=== PATIENT | female | born 1965 | race Caucasian/White ===

== ENCOUNTER 2018-04-02 13:18 | Inpatient (IN) ==
[2018-04-02] MEDS ORDERED: SODIUM CHLORIDE 0.9% 1000ML 1,000 ML IV SCH (13:45)
--- NOTE | 2018-04-02 13:50 | Emergency Department Note ---
Entered by Breanna Harrell acting as a scribe for History of Present Illness General Chief complaint: Foot Injury/Pain Stated complaint: LEFT FOOT PAIN Time Seen by Provider: 04/02/18 13:31 Source: patient History of Present Illness Provider complaint: left foot pain Onset (ago): day(s) Location: foot (left) Pain Consistency: + constant Maximum Pain Intensity: 7 Quality: + other (foot pain) Associated symptoms: + other (fever, chest heaviness, cough) The patient is a 52 year old female who presents to the Emergency Room with complaints of constant left foot pain beginning recently. She reports Dr. Rodriguez referred her to the ED after he saw her in the office today for osteomyelitis. The patient notes she had surgery on her achilles tendon 12/24/17, and her wound has not yet healed. She reports she was placed on 3 different antibiotics ( Bactrim, Keflex, Augmentin) and has not had any antibiotics for 1 week. The patient notes she has had a fever, heaviness in her chest, and a cough. Allergies Allergy/AdvReac Type Severity Reaction Status Date / Time Latex, Natural Rubber Allergy Unknown Unverified 04/02/18 16:31 triamcinolone [From Kenalog] Allergy Unknown Unverified 04/02/18 16:31 Past Med/Surg History Medical History Depression Gout High cholesterol Migraine Surgical History H/O foot surgery Social History Feels Safe at Home: Yes Review of Systems See HPI for pertinent positives & negatives. and A total of 10 systems reviewed and were otherwise negative Physical Exam Vital Signs Vital Signs - 24 hr 04/02/18 13:23 Temperature 36.5 C Temperature Source Oral Sepsis Recent Fever Within 48 Hours No Sepsis New/Unexplained Change in Mental Status No Sepsis Action Taken by Nursing No Action Required Pulse Rate 92 H Respiratory Rate 20 Respiratory Effort / Characteristics Non-Labored Respiratory Depth Normal Blood Pressure 156/93 H Blood Pressure Mean 114 Pulse Oximetry 98 Oxygen Delivery Method Room Air GENERAL: Patient is awake alert in no acute distress patient is resting comfortably and showing no signs of anxiety EYES: The conjunctivae are clear. The pupils are round and reactive. EARS, NOSE, MOUTH AND THROAT: The nose is without any evidence of any deformity. Mucous membranes are moist tongue is midline NECK: The neck is nontender and supple. RESPIRATORY: Normal respiratory effort is noted there is no evidence of wheezing rhonchi or rales CARDIOVASCULAR: Regular rate and rhythm noted there no murmurs rubs or gallops normal S1 normal S2 GASTROINTESTINAL: The abdomen is soft. Bowel sounds are present in all quadrants. Abdomen is nontender PELVIS: The Pelvis is stable. No tenderness to palpation is noted. BACK: No midline tenderness or or step-off noted range of motion in flexion extension as well as rotation no signs of muscle spasm noted MUSCULOSKELETAL/EXTREMITIES: There is ankle edema noted in the left lower extremity. There is pedal edema on the left foot. There is a wound dressing in place with tenderness over the left Achilles insertion at the heel. SKIN: Capillary refill was symmetric in both feet. NEUROLOGIC: Patient is awake alert and oriented x3. Course 1337: Past medical records reviewed. The patient was evaluated in room C7, and a complete history and physical examination were performed. 1552: I discussed the case with . 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 1555: I discussed the case with Dr Rodriguez. He is agreed to follow the patient in consultation and would prefer to place a wound VAC by himself when he evaluate the patient in consultation. 1610: [place] Hospitalist notified 1633: I discussed this case with Dr. Beltre, the on-call [facility] hospitalist. They have agreed to evaluate the patient. Administered Medications Gadobutrol (Gadavist 65ml) 8 ml IV ONCE PRN PRN Reason: Interaction Checking Stop: 04/06/18 15:12 Last Admin: 04/02/18 15:13 Dose: 8 ml Vancomycin HCl 1,750 mg/ (Sodium Chloride) 535 mls @ 200 mls/hr IV NOW ONE Stop: 04/02/18 18:18 Last Admin: 04/02/18 16:12 Dose: 200 mls/hr Discontinued Medications Sodium Chloride (Nss 1000ml) 1,000 mls @ 999 mls/hr IV .[id number] YEVGENIY Stop: 04/02/18 14:45 Last Infusion: 04/02/18 14:54 Dose: 0 mls/hr Admin: 04/02/18 13:53 Dose: 999 mls/hr Piperacillin Sod/Tazobactam Sod (Zosyn) 4.5 gm in 120 mls @ 240 mls/hr IV NOW ONE Stop: 04/02/18 16:07 Last Admin: 04/02/18 16:12 Dose: 240 mls/hr Oxycodone HCl (Roxicodone Immediate Rel) 5 mg PO NOW STA Stop: 04/02/18 14:23 Last Admin: 04/02/18 14:31 Dose: 5 mg Medical Decision Making Differential Diagnosis Etiologies such as post-operative infection, cellulitis, abscess, osteomyelitis , MRSA infection, DVT, necrotizing fasciitis, dermatitis, drug eruption, as well as others were entertained. Medical Records Attestation: I reviewed the patient's medical records. Home Medications Current Medication List: was personally reviewed by me Laboratory Data Attestation: I reviewed the patient's lab results. Result diagrams: 04/02/18 13:55 04/02/18 13:55 Lab Results 04/02/18 04/02/18 04/02/18 Range/Units 13:55 13:55 13:55 WBC 8.06 (4.8-10.8) K/uL RBC 4.52 (4.2-5.4) M/uL Hgb 14.0 (12.0-16.0) g/dL POC Hgb (12.0-16.0) g/dl Hct 42.3 (37-47) % POC Hct (37-47) % MCV 93.6 (80-100) fL MCH 31.0 (25-34) pg MCHC 33.1 (32-36) g/dL RDW Std Deviation 52.5 H (36.4-46.3) fL RDW Coeff of Paul 15.4 H (11.5-14.5) % Plt Count 176 (130-400) K/uL MPV 10.4 (7.4-10.4) fL Immature Gran % (Auto) 0.4 % Neut % (Auto) 63.9 % Lymph % (Auto) 25.9 % [place] % (Auto) 5.3 % Eos % (Auto) 3.5 % Baso % (Auto) 1.0 % Immature Gran # (Auto) 0.03 H (0.00-0.02) K/uL Neut # (Auto) 5.15 (1.4-6.5) K/uL Lymph # (Auto) 2.09 (1.2-3.4) K/uL [place] # (Auto) 0.43 (0.11-0.59) K/uL Eos # (Auto) 0.28 (0-0.5) K/uL Baso # (Auto) 0.08 (0-0.2) K/uL ESR 58 H (0-21) mm/hr POC Sodium (135-144) mEq/L Sodium 137 (136-145) mmol/L POC Potassium (3.3-5.0) mEq/L Potassium 3.6 (3.5-5.1) mmol/L POC Chloride (101-112) mEq/L Chloride 106 (98-107) mmol/L Carbon Dioxide 26 (21-32) mmol/L POC Total CO2 (24-31) mEq/l Anion Gap 5.0 (3-11) POC Anion Gap (16-25) mmol/L POC BUN (7-18) mg/dl BUN 8 (7-18) mg/dl Creatinine 0.80 (0.6-1.2) mg/dl POC Creatinine (0.6-1.3) mg/dl Est Cr Clr Drug Dosing 86.6 ml/min Est GFR ( Amer) 96.9 Est GFR (Non-Af Amer) 83.6 BUN/Creatinine Ratio 9.9 L (10-20) Glucose 119 H (70-99) mg/dl POC Glucose (other) (70-99) mg/dl Calcium 8.9 (8.5-10.1) mg/dl POC Ioniz Calcium Olivia (1.12-1.32) mmol/l Total Bilirubin 0.8 (0.2-1) mg/dl AST 91 H (15-37) U/L ALT 56 (12-78) U/L Alkaline Phosphatase 184 H (45-117) U/L C-Reactive Protein 1.05 H (0-0.29) mg/dl Total Protein 7.9 (6.4-8.2) gm/dl Albumin 3.4 (3.4-5.0) gm/dl Globulin 4.5 H (2.5-4.0) gm/dl Albumin/Globulin Ratio 0.8 L (0.9-2) 04/02/18 Range/Units 14:00 WBC (4.8-10.8) K/uL RBC (4.2-5.4) M/uL Hgb (12.0-16.0) g/dL POC Hgb 14.6 (12.0-16.0) g/dl Hct (37-47) % POC Hct 43 (37-47) % MCV (80-100) fL MCH (25-34) pg MCHC (32-36) g/dL RDW Std Deviation (36.4-46.3) fL RDW Coeff of Paul (11.5-14.5) % Plt Count (130-400) K/uL MPV (7.4-10.4) fL Immature Gran % (Auto) % Neut % (Auto) % Lymph % (Auto) % [place] % (Auto) % Eos % (Auto) % Baso % (Auto) % Immature Gran # (Auto) (0.00-0.02) K/uL Neut # (Auto) (1.4-6.5) K/uL Lymph # (Auto) (1.2-3.4) K/uL [place] # (Auto) (0.11-0.59) K/uL Eos # (Auto) (0-0.5) K/uL Baso # (Auto) (0-0.2) K/uL ESR (0-21) mm/hr POC Sodium 141 (135-144) mEq/L Sodium (136-145) mmol/L POC Potassium 3.7 (3.3-5.0) mEq/L Potassium (3.5-5.1) mmol/L POC Chloride 104 (101-112) mEq/L Chloride (98-107) mmol/L Carbon Dioxide (21-32) mmol/L POC Total CO2 26 (24-31) mEq/l Anion Gap (3-11) POC Anion Gap 15.0 L (16-25) mmol/L POC BUN 6 L (7-18) mg/dl BUN (7-18) mg/dl Creatinine (0.6-1.2) mg/dl POC Creatinine 0.6 (0.6-1.3) mg/dl Est Cr Clr Drug Dosing ml/min Est GFR ( Amer) Est GFR (Non-Af Amer) BUN/Creatinine Ratio (10-20) Glucose (70-99) mg/dl POC Glucose (other) 122 H (70-99) mg/dl Calcium (8.5-10.1) mg/dl POC Ioniz Calcium Olivia 1.13 (1.12-1.32) mmol/l Total Bilirubin (0.2-1) mg/dl AST (15-37) U/L ALT (12-78) U/L Alkaline Phosphatase (45-117) U/L C-Reactive Protein (0-0.29) mg/dl Total Protein (6.4-8.2) gm/dl Albumin (3.4-5.0) gm/dl Globulin (2.5-4.0) gm/dl Albumin/Globulin Ratio (0.9-2) Imaging Data Radiologist's Impression: Radiology results as stated below per my review and the radiologist's interpretation: XR chest 1V portable CLINICAL HISTORY: cough COMPARISON STUDY: No previous studies for comparison. FINDINGS: The heart is borderline enlarged. There is no failure. There is no focal pulmonary consolidation. There are no pleural effusions.[ IMPRESSION: No active disease in the chest. Electronically signed by: Weston Hernandez M.D. 04/02/2018 2:13 PM MRI OF THE LEFT ANKLE COMBO CLINICAL HISTORY: Open wound left ankle status post surgery calcaneus and Achilles. COMPARISON STUDY: No priors. TECHNIQUE: MRI of the left ankle is performed utilizing various T1 and T2- weighted sequences in the axial, sagittal, and coronal planes. Contrast- enhanced sequences are acquired following the IV administration of 8 cc of Gadavist. Note that interpretation is significantly suboptimal without plain film correlate. FINDINGS: There is tendinopathy with extensive thickening and tearing involving the distal Achilles tendon with evidence of surgical repair. There is a large gap between the Central fibers of the Achilles tendon and the calcaneus, best seen on sagittal image #11. Several of the medial and lateral fibers remain intact. There is no tendinous retraction identified. There are at least 5 surgical anchors present within the posterior aspect of the calcaneus. There is drop in T1 signal within the posterior calcaneus around the surgical anchors, as well as destruction of the overlying cortex. This is highly concerning for osteomyelitis, and there is nonspecific patchy abnormal enhancement in this region. There is a cutaneous defect posterior the calcaneus, likely representing a wound. Debris filling this cavity likely resents packing material. There is nonspecific soft tissue thickening and enhancement around this site which may resent granulation tissue an/or cellulitis. No gas fluid collection is seen typical for abscess. Mild diffuse edema is seen throughout the hindfoot and ankle. No additional foci of marrow signal abnormality are seen throughout the remainder of the foot. The talar dome is intact. There is no ankle joint effusion. The anterior, posterior, and peroneal tendons appear intact. The anterior talofibular and tibiofibular ligaments appear preserved. IMPRESSION: 1. There is extensive tearing of the distal Achilles tendon with evidence of operative repair. 2. There is a large gap within the substance of the Achilles tendon at the calcaneal junction. This may resent postoperative change or re-tearing of the distal tendon. Several of the medial and lateral fibers remain intact. 3. There is abnormal signal within the posterior calcaneus around surgical anchors with loss of the overlying cortex. This is highly concerning for osteomyelitis. 4. A cutaneous defect posterior to the calcaneus likely represents a wound, possibly with packing material. Clinical correlation will be required. 5. Soft tissue thickening and nonspecific enhancement posterior to the calcaneus could represent granulation tissue and/or cellulitis. Again, clinical correlation will be required. 6. No organized fluid collection is seen to indicate abscess. Electronically signed by: Shady Martinez M.D. 04/02/2018 3:37 PM Blood Pressure Blood Pressure Findings: Elevated blood pressure MDM Narrative The patient is a 52-year-old female who is status post Achilles tendon repair. She had Achilles tendon repair in December of last year. And follow-up the patient developed an abscess which was treated at a wound care center. She had outpatient antibiotics at that time. She is not currently taking outpatient antibiotics. She was seen by her primary surgeon and was sent to the emergency department for further evaluation and for concerns of osteomyelitis. The patient was treated with IV antibiotics in the emergency department. I discussed the patient's laboratory and radiographic studies with her. She was found to have signs of osteomyelitis on MRI. I discussed her findings with her primary podiatric surgeon. At this time he would prefer the patient Be as an inpatient for further IV antibiotics and for possible PICC line placement. He also would prefer that he place a wound VAC to the patient's postoperative site. He would also like the patient to be evaluated by internal medicine for primary admission as well as infectious disease for further management. No cultures were obtained at this time. The patient does have a history of MRSA on the previous cultures. [facility] I discussed this case [facility] Impression & Plan Osteomyelitis of ankle or foot, acute, Post-operative pain, Post-operative infection Discharge Plan Visit Data Chief Complaint: Foot Injury/Pain Stated Complaint: LEFT FOOT PAIN ED Provider: Kd Palma Discharge Problem: Osteomyelitis of ankle or foot, acute, Post-operative pain, Post-operative infection Patient Disposition: Being Evaluated by Surgeon Forms Stand Alone Forms: [facility] Referrals Referrals: PCP,NO [Primary Care Provider] - The scribe's documentation has been prepared under my direction and personally reviewed by me in its entirety. I confirm that the note above accurately reflects all work, treatment, procedures, and medical decision making performed by me.
[2018-04-02 14:14] LABS: iSTAT Hemoglobin 14.6 g/dl (12.0-16.0); iSTAT Ionized Calcium 1.13 mmol/l (1.12-1.32)
--- NOTE | 2018-04-02 14:14 | XRay Report ---
XR chest 1V portable CLINICAL HISTORY: cough COMPARISON STUDY: No previous studies for comparison. FINDINGS: The heart is borderline enlarged. There is no failure. There is no focal pulmonary consolid ation. There are no pleural effusions.[ IMPRESSION: No active disease in the chest. Electronically signed by: Weston Hernandez M.D. 04/02/2018 2:13 PM
[2018-04-02 14:16] LABS: Basophils # (auto) 0.08 K/uL (0-0.2); Eosinophils # (auto) 0.28 K/uL (0-0.5); Eosinophils % (auto) 3.5 %; Hematocrit (blood only) 42.3 % (37-47); Immature Granulocytes # (auto) 0.03 K/uL (0.00-0.02); Immature Granulocytes % (auto) 0.4 %; Lymphocytes # (auto) 2.09 K/uL (1.2-3.4); Lymphocytes % (auto) 25.9 %; Mean Corpuscular Hgb Conc 33.1 g/dL (32-36); Mean Corpuscular Volume 93.6 fL (80-100); Mean Platelet Volume 10.4 fL (7.4-10.4); Monocytes # (auto) 0.43 K/uL (0.11-0.59); Monocytes % (auto) 5.3 %; Neutrophils # (auto) 5.15 K/uL (1.4-6.5); Neutrophils % (auto) 63.9 %; Platelet Count 176 K/uL (130-400); RDW Coefficient of Variation 15.4 % (11.5-14.5); RDW Standard Deviation 52.5 fL (36.4-46.3); Red Blood Count 4.52 M/uL (4.2-5.4); White Blood Count 8.06 K/uL (4.8-10.8)
[2018-04-02] MEDS ORDERED: OXYCODONE HCL IR 5 MG TAB (IMMEDIATE RELEASE) PO STA (14:22)
[2018-04-02 14:34] LABS: Albumin Level 3.4 gm/dl (3.4-5.0); BUN Creatinine Ratio 9.9 (10-20); Calcium 8.9 mg/dl (8.5-10.1); Creatinine Clr Calc Pharmacy 86.6 ml/min; Est GFR (African American) 96.9; Est GFR (Non-African American) 83.6; Potassium 3.6 mmol/L (3.5-5.1)
[2018-04-02 14:37] LABS: Albumin Globulin Ratio 0.8 (0.9-2); Bilirubin,Total 0.8 mg/dl (0.2-1); C Reactive Protein 1.05 mg/dl (0-0.29); Globulin 4.5 gm/dl (2.5-4.0); Total Protein 7.9 gm/dl (6.4-8.2)
[2018-04-02] MEDS ORDERED: GADOBUTROL 65ML VIAL IV PRN (15:13)
[2018-04-02] MEDS ORDERED: PIPERACILLIN/TAZOBACTAM 4.5 GM/120 ML BAG IV ONE (15:38)
[2018-04-02] MEDS ORDERED: VANCOMYCIN CONSULT ACTIVE PRN ×2 (15:38→21:19)
[2018-04-02] MEDS ORDERED: VANCOMYCIN HCL 1,750 MG in SODIUM CHLORIDE 0.9% 500 ML IV ONE (15:38)
[2018-04-02] MEDS ORDERED: PIPERACILL/TAZOBAC CONSULT ACTIVE PRN (15:38)
--- NOTE | 2018-04-02 15:38 | Magnetic Resonance Report ---
ADDENDUM ADDENDUM: The case was reviewed with the referring coiled tubing operator on 04/03/2018. There was significant billy gical shaving of the dorsal calcaneus at the time of surgery, and the signal abnormality with cortica l loss identified by MRI likely represents expected postoperative change. There is only mild marrow e lita identified at this site on the STIR weighted sequences. These findings are not definitive, and o steomyelitis would be impossible to exclude. Clinical correlation will be essential. The surgeon conf irmed the presence of packing material within the patient's posterior wound. No organized fluid colle ction is identified. Additionally, there was a split repair of the the Achilles tendon. There is no e vidence of re-tearing of the tendon based on the reported surgical history. Electronically signed by: Shady Martinez M.D. 04/03/2018 8:41 AM ORIGINAL REPORT MRI OF THE LEFT ANKLE COMBO CLINICAL HISTORY: Open wound left ankle status post surgery calcaneus and Achilles. COMPARISON STUDY: No priors. TECHNIQUE: MRI of the left ankle is performed utilizing various T1 and T2-weighted sequences in the a xial, sagittal, and coronal planes. Contrast-enhanced sequences are acquired following the IV adminis tration of 8 cc of Gadavist. Note that interpretation is significantly suboptimal without plain film correlate. FINDINGS: There is tendinopathy with extensive thickening and tearing involving the distal Achilles t endon with evidence of surgical repair. There is a large gap between the Central fibers of the Achill es tendon and the calcaneus, best seen on sagittal image #11. Several of the medial and lateral fiber s remain intact. There is no tendinous retraction identified. There are at least 5 surgical anchors p resent within the posterior aspect of the calcaneus. There is drop in T1 signal within the posterior calcaneus around the surgical anchors, as well as destruction of the overlying cortex. This is highly concerning for osteomyelitis, and there is nonspecific patchy abnormal enhancement in this region. T here is a cutaneous defect posterior the calcaneus, likely representing a wound. Debris filling this cavity likely resents packing material. There is nonspecific soft tissue thickening and enhancement a round this site which may resent granulation tissue an/or cellulitis. No gas fluid collection is seen typical for abscess. Mild diffuse edema is seen throughout the hindfoot and ankle. No additional foc i of marrow signal abnormality are seen throughout the remainder of the foot. The talar dome is intac t. There is no ankle joint effusion. The anterior, posterior, and peroneal tendons appear intact. The anterior talofibular and tibiofibular ligaments appear preserved. IMPRESSION: 1. There is extensive tearing of the distal Achilles tendon with evidence of operative repair. 2. There is a large gap within the substance of the Achilles tendon at the calcaneal junction. This m ay resent postoperative change or re-tearing of the distal tendon. Several of the medial and lateral fibers remain intact. 3. There is abnormal signal within the posterior calcaneus around surgical anchors with loss of the o verlying cortex. This is highly concerning for osteomyelitis. 4. A cutaneous defect posterior to the calcaneus likely represents a wound, possibly with packing mat erial. Clinical correlation will be required. 5. Soft tissue thickening and nonspecific enhancement posterior to the calcaneus could represent gran ulation tissue and/or cellulitis. Again, clinical correlation will be required. 6. No organized fluid collection is seen to indicate abscess. Electronically signed by: Shady Martinez M.D. 04/02/2018 3:37 PM
--- NOTE | 2018-04-02 18:33 | History & Physical Report ---
Date of Service April 02, 2018 Assessment & Plan (1) Osteomyelitis of ankle or foot, acute: 52 y/o F Hx Gout, PTSD, chronic lower back pain, hypothyoridism. The pt had surgery on her L calcaneus and achilles tendon 12/2017 following an apparent stress fracture and achilles tear. She has had a nonhealing surgical wound at the posterior aspect of her L foot since that time. At one point she was treated for MRSA. Recently she has had increasing pain and swelling in her L ankle. She had an appointment with her assembler equipment prior to admission who ordered an MRI. This demonstrated likely calcaneal osteomyelitis. She was sent to the hospital for IV antibiotics therefore. She denies fevers or rigors and initial labs are unremarkable. 1) Osteomyelitis L foot/calcaneus. The assembler equipment has requested to see this pt in the hospital for possible debridement and placement of a wound vac. She had been started on MRSA coverage which we will continue. She will likely need a PICC for extendd outpt treatment. She may have a recurrence of an achilles tear on imaging. We would ask her assembler equipment for an opinion as he is familiar with her prior imaging. She may benefit from an ortho consult. Analgesics provided. The pt will b kept NPO > midnight 2) Gout - cont Allopurinol. 3) Hypothyroidism - cont Synthroid 4) PTSD - cont Clonazepam, Abilify, Mirtazipine Full code - SCDs Total time for this admit including review of labs, meds, imaging, records - discussion with pt and ER attending - 41 min Present on Admission?: Yes History of Present Illness Chief Complaint: Suspected osteomyelitis L calcaneus Primary Care Provider: NO PCP 52 y/o F Hx Gout, PTSD, chronic lower back pain, hypothyoridism. The pt had surgery on her L calcaneus and achilles tendon 12/2017 following an apparent stress fracture and achilles tear. She has had a nonhealing surgical wound at the posterior aspect of her L foot since that time. At one point she was treated for MRSA. Recently she has had increasing pain and swelling in her L ankle. She had an appointment with her assembler equipment prior to admission who ordered an MRI. This demonstrated likely calcaneal osteomyelitis. She was sent to the hospital for IV antibiotics therefore. She denies fevers or rigors and initial labs are unremarkable. PMH: 1) Gout 2) Hypothyroidsim 3) PTSD 4) Chronic lower back pain 5) GERD 6) Migraine headaches Surgical: 1) Lumbar fusion and hardware placement 2010 2) L Calcaneus surgery and achilles tendon repair 12/2017 Social: Smokes a pack daily, rarely drinks, disabled since back surgery 2010 Family: Mother due to lung CA Father with history of gout and multiple back surgeries Allergies Allergy/AdvReac Type Severity Reaction Status Date / Time Latex, Natural Rubber Allergy Unknown Unverified 04/02/18 16:31 triamcinolone [From Kenalog] Allergy Unknown Unverified 04/02/18 16:31 Home Medications Home Medications Medication Instructions Recorded Confirmed Type allopurinol 1 tab PO BID 04/02/18 04/02/18 History almotriptan malate 1 tab PO DAILY PRN 04/02/18 04/02/18 History aripiprazole 1 tab PO HS 04/02/18 04/02/18 History clonazepam 0.5 mg PO DAILY PRN 04/02/18 04/02/18 History cyclobenzaprine 1 tab PO TID 04/02/18 04/02/18 History levothyroxine [Synthroid] 1 tab PO QAM 04/02/18 04/02/18 History mirtazapine 1 tab PO HS 04/02/18 04/02/18 History oxycodone-acetaminophen [Percocet] 1 tab PO Q4H PRN 04/02/18 04/02/18 History pantoprazole 1 tab PO BID 04/02/18 04/02/18 History Past Med/Surg History Medical History Depression Gout High cholesterol Migraine Surgical History H/O foot surgery Social History Feels Safe at Home: Yes Review of Systems Gen: Denies fevers, night sweats, rigors, fatigue, malaise, weight loss/gain ENT: Denies congestion, throat pain, hearing loss Eyes: Denies acute visual changes CV: Denies CP, palpitations Pulmonary: Denies SOB, cough, wheezing GI: Denies N/V, diarrhea, constipation Neuro: Denies acute or unilateral weakness, acute gait impairment, headache or acute visual changes Musculoskeletal: Pain in L foot as above Endocrine: Denies polydipsia, polyuria Skin: Denies acute rashes or ulcers - nonhealing laceration of L foot Physical Exam 2 Vital Signs (Past 24 Hours): Last Vital Signs Temp 36.5 C 04/02/18 13:23 Pulse 90 04/02/18 16:47 Resp 17 04/02/18 16:47 BP 141/82 H 04/02/18 16:47 Pulse Ox 95 04/02/18 16:47 Physical Exam: General: AAO x 3, no distress ENT: No erythema or exudates, no thrush Eyes: ROSALINDA, EOMI Head and neck: Normocephalic, atraumatic, No JVD, neck is supple. Chest/heart: Nontender, S1,2, RRR, no murmurs, no gallops Lungs: CTAB, no wheezing or crackles Abdomen: Nontender, nondistended, BS+ Neuro: AAO x 3, speech is clear, no unilateral weakness or loss of sensation, coordination intact Musculoskeletal: No joint inflammation, muscle tenderness, FROM- aside form L foot - see extrem exam Skin: No acute rashes or ulcers Extremities: No clubbing, cyanosis - minimla edema - inflammmation and laceration of post L foot - pain to palpation of heel/achilles area Results & Data Diagnostic Findings Ankle MRI: 1. There is extensive tearing of the distal Achilles tendon with evidence of operative repair. 2. There is a large gap within the substance of the Achilles tendon at the calcaneal junction. This may resent postoperative change or re-tearing of the distal tendon. Several of the medial and lateral fibers remain intact. 3. Abnormal signal in the posterior calcaneus around surgical anchors with loss of the overlying cortex. Concerning for osteomyelitis. 4. A cutaneous defect posterior to the calcaneus likely represents a wound, possibly with packing material. 5. Soft tissue thickening and nonspecific enhancement posterior to the calcaneus could represent granulation tissue and/or cellulitis. _ (1) Osteomyelitis of ankle or foot, acute Laterality: left Qualified Code(s): M86.172 - Other acute osteomyelitis, left ankle and foot
[2018-04-02] MEDS ORDERED: HYDROmorphone INJ 1 MG/ML SYRINGE IV STA (18:47)
[2018-04-02] MEDS ORDERED: HYDROmorphone INJ 1 MG/ML SYRINGE ONE (18:53)
[2018-04-02] MEDS ORDERED: ALUMINUM/MAGNESIUM SUSP 30 ML UDC PO PRN (21:19)
[2018-04-02] MEDS ORDERED: MAGNESIUM HYDROXIDE SUSP 30 ML UDC PO PRN (21:19)
[2018-04-02] MEDS ORDERED: ONDANSETRON INJ 2 MG/ML 2 ML VIAL IV PRN (21:19)
[2018-04-02] MEDS ORDERED: ZOLPIDEM TARTRATE 5 MG TAB PO PRN (21:19)
[2018-04-02] MEDS ORDERED: POLYETHYLENE (MIRALAX) 17 GM PACK PO PRN (21:19)
[2018-04-02] MEDS ORDERED: OXYCODONE/ACETAMINOPHEN 10-325 TAB PO PRN (21:19)
[2018-04-02] MEDS: D5W AND LACTATED RINGERS 1,000 ML IV SCH (22:31)
[2018-04-02] MEDS: OXYCODONE HCL IR 5 MG TAB (IMMEDIATE RELEASE) PO PRN (22:47)
[2018-04-02] MEDS: ARIPiprazole 5 MG TAB PO SCH (23:33)
[2018-04-02] MEDS: ALLOPURINOL 300 MG TAB PO SCH (23:34)
[2018-04-02] MEDS: MIRTAZAPINE TAB 15 MG TAB PO SCH (23:34)
[2018-04-02] MEDS: PANTOprazole 40 MG TAB PO SCH (23:35)
[2018-04-02] MEDS: CYCLOBENZAPRINE HCL 10 MG TAB PO SCH (23:35)
[2018-04-03] MEDS: HYDROmorphone INJ 0.5 MG/0.5 ML SYR IV PRN ×5 (00:04→20:31)
[2018-04-03] MEDS: cefTRIAXone SODIUM 1,000 MG/50 ML BAG IV SCH ×2 (00:05→22:35)
[2018-04-03] MEDS ORDERED: INFLUENZA VIRUS QUAD VACCINE 0.5 ML SYR IM ONE (05:15)
[2018-04-03] MEDS ORDERED: INFLUENZA ADMINISTRATION CHARGE ONE (05:15)
[2018-04-03] MEDS: VANCOMYCIN HCL 1,500 MG in SODIUM CHLORIDE 0.9% 500 ML IV SCH ×2 (05:58→17:10)
[2018-04-03] MEDS: LEVOTHYROXINE SODIUM 88 MCG TABLET PO SCH (05:58)
[2018-04-03] MEDS: OXYCODONE HCL IR 5 MG TAB (IMMEDIATE RELEASE) PO PRN ×4 (05:59→22:33)
[2018-04-03] MEDS: clonazePAM 0.5 MG TAB PO PRN (08:20)
[2018-04-03] MEDS: ALLOPURINOL 300 MG TAB PO SCH ×2 (08:21→20:35)
[2018-04-03] MEDS: CYCLOBENZAPRINE HCL 10 MG TAB PO SCH ×3 (08:21→20:36)
[2018-04-03] MEDS: PANTOprazole 40 MG TAB PO SCH ×2 (08:21→20:35)
--- NOTE | 2018-04-03 09:06 | Podiatry Consultation ---
Date of Consultation April 03, 2018 Assessment & Plan (1) Post-operative infection: S/P left retrocalcaneal exostosis resection with flexor hallucis longus tendon transfer on 12/24/2017 - The most recent clinical exam is not consistent with a current active infection or abscess as there is minimal calor and edema and no other local SOI present. She does have exposed achilles tendon present and will require wound vac therapy to attain closure. There is possibility of grafting over the tendon with application of wound vac to expedite healing however graft will be delayed until definitive osteomyelitis is ruled in/out/treated. Wound vac is ordered today at 125 mmHg continous pressure changed every other day with black foam dressing. - Had recent bedside I&D at [facility] by DOROTA. Cultures from this wound showed MSSA. Please contact [facility] for results and sensitivities of cultures. - MRI was originally read positive for osteomyelitis. Discussed the case with the radiologist who read the study and explained to him the postoperative findings and course. I did explain that the cortical erosions that are seen on MRI could be secondary to the destruction that occurred intraoperatively by remodeling the posterior inferior and superior aspects of the calcaneus. The reactive bone marrow edema could be secondary to the resorbable anchors that were placed x5 in the posterior heel. The findings of the degenerative Achilles tendon with tearing is consistent with what was noted intraoperatively at the time of surgery when approximately 20% of the tendon was left intact. This was the reason for an FHL tendon transfer that was performed. At the time of surgery the Achilles tendon is also split in a T fashion which is consistent with the findings of a tear in the central portion of the Achilles tendon. - At this time I believe the radiographic studies are inconclusive as far as confirmation of osteomyelitis. Surgical options at this time would consist of a bone biopsy from multiple sites for guidance of antibiosis. This will be done tomorrow PM. She will need to be NPO at Midnight pending the OR availability. My first availability is 1430 PM. Removing hardware is not an option at this point due to lack of appropriate healing of tendons and tendon transfers. - Sergey feel free to call me directly at [phone] to discuss this patients recent history or with any concerns/questions regarding my plans going forward. Encounter type: initial encounter Postoperative infection type: superficial incisional surgical site Qualified Code(s): T81.41XA - Infection following a procedure, superficial incisional surgical site, initial encounter Present on Admission?: Yes History of Present Illness Attending Physician: Dharmesh Tena MD, PhD, [facility] Raina is a 52-year-old female who is well-known to me as an outpatient surgery that was done on 12/24/2017. The surgery consisted of a retrocalcaneal exostosis resection with Achilles tendon debridement and flexor hallucis longus tendon transfer. At last follow-up she was noted to have a central wound to the posterior heel approximately 6 weeks ago. She failed to follow-up appropriately in my outpatient office presented to [facility] last Saturday. She had an incision and drainage of an abscess done with cultures taken revealing MSSA. She then presented to me as an outpatient in my office yesterday where she was noted to have minimal clinical signs of infection exam. She did note that she was feeling ill. She denied any fevers nausea vomiting or chills at that time. She has not been on any antibiotics. I sent her from the emergency room for evaluation and admission with MRI. Plain films in my office yesterday showed no significant cortical erosions from the postoperative original films. Allergies Allergy/AdvReac Type Severity Reaction Status Date / Time Latex, Natural Rubber Allergy Unknown Unverified 04/02/18 16:31 triamcinolone [From Kenalog] Allergy Unknown Unverified 04/02/18 16:31 Home Medications Home Medications Medication Instructions Recorded Confirmed Type allopurinol 1 tab PO BID 04/02/18 04/02/18 History almotriptan malate 1 tab PO DAILY PRN 04/02/18 04/02/18 History aripiprazole 1 tab PO HS 04/02/18 04/02/18 History clonazepam 0.5 mg PO DAILY PRN 04/02/18 04/02/18 History cyclobenzaprine 1 tab PO TID 04/02/18 04/02/18 History levothyroxine [Synthroid] 1 tab PO QAM 04/02/18 04/02/18 History mirtazapine 1 tab PO HS 04/02/18 04/02/18 History oxycodone-acetaminophen [Percocet] 1 tab PO Q4H PRN 04/02/18 04/02/18 History pantoprazole 1 tab PO BID 04/02/18 04/02/18 History Patient History Medical History Depression Gout High cholesterol Migraine Surgical History H/O foot surgery Social History Current Living Situation: Spouse Other Information That Helps Us Care for You: Yes (gluten free diet) Feels Safe at Home: Yes Safety Concerns: Feels Safe At This Time Smoking Status: Current every day smoker Tobacco Type: cigarettes Cigarettes per Day: 10 Do You Dip or Chew Tobacco: No Second Hand Exposure: No Tobacco Cessation Education Requested by Patient: No Hx Alcohol Use: Yes Alcohol type: hard liquor Alcohol Intake Frequency: a few times a week Hx Substance Use: No Beliefs That Will Affect Care: None Preferred Language: Ghanaian Communication Ability: Effective Spring Inspector Required: No Review of Systems A full 12 system review of system was conducted and noted to be negative other than the above HPI Physical Exam 2 Vital Signs (Past 24 Hours): Last Vital Signs Temp 36.6 C 04/03/18 08:33 Pulse 82 04/03/18 08:33 Resp 16 04/03/18 08:33 BP 136/85 04/03/18 08:33 Pulse Ox 94 04/03/18 08:33 Physical Exam: Vital signs are stable and she is alert and oriented to person place and time Neurovascular status is intact in the bilateral LE There is a central wound dehiscence to the posterior left incision site. Wound is approximately 1 cm long by 0.4 cm wide with a depth of approximately 0.6 cm. There is exposed Achilles tendon present. No probing to bone is noted. No purulence is noted on exam today. There is mild calor surrounding the area with no erythema or proximal streaking noted. There is moderate edema present within normal limits for the wound that is present. Serous drainage is noted from the wound at this time. Resistance to dorsiflexion of the ankle joint is noted on exam Results & Data Laboratory Results No leukocytosis present however there is an elevated ESR Diagnostic Findings MRI was originally read positive for osteomyelitis. Discussed the case with the radiologist who read the study and explained to him the postoperative findings and course. I did explain that the cortical erosions that are seen on MRI could be secondary to the destruction that occurred intraoperatively by remodeling the posterior inferior and superior aspects of the calcaneus. The reactive bone marrow edema could be secondary to the resorbable anchors that were placed x5 in the posterior heel. The findings of the degenerative Achilles tendon with tearing is consistent with what was noted intraoperatively at the time of surgery when approximately 20% of the tendon was left intact. This was the reason for an FHL tendon transfer that was performed. At the time of surgery the Achilles tendon is also split in a T fashion which is consistent with the findings of a tear in the central portion of the Achilles tendon.
--- NOTE | 2018-04-03 10:02 | Pharmacy Report ---
Pharmacy Abx Initial Consult - Date of Service April 03, 2018 - Pharmacy Dosing Scope Date of Consult: 04/02/18 Consultation requested by: Dr. Beltre Pharmacy is consulted to initiate Vancomycin IV dosing therapy, order appropriate labs and adjust drug dose/frequency. - Subjective The patient is a 52 year old F admitted on 04/02/18 19:31 with Osteomyelitis L foot/calcaneus. PMHx Gout, PTSD, chronic lower back pain, hypothyoridism. S/p surgery on her L calcaneus and achilles tendon 12/2017. Nonhealing surgical wound at the posterior aspect of her L foot since that time. At one point she was treated for MRSA. Recently she has had increasing pain and swelling in her L ankle. She had an appointment with her pipe welder prior to admission who ordered an MRI. This demonstrated likely calcaneal osteomyelitis. She was sent to the hospital for IV antibiotics. She denies fevers or rigors and initial labs are unremarkable. The pipe welder has requested to see this pt in the hospital for possible debridement and placement of a wound vac. She will likely need a PICC for extendd outpt treatment. 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 Plan IV Vancomcyin for treatment of osteomyelitis. Vancomycin IV * Estimated PK Parameters: Vd 0.7 L/kg, Renan 0.076 hr-1, t1/2 9.11hr * Loading dose: 1750 mg (20 mg/kg) * Maintenance dose: 1500 mg IV (17 mg/kg) every 12 hours * Goal trough level for osteomyelitis : 15 to 20 mcg/mL * Trough level ordered for 04/04/18 Pharmacy will continue to follow and will adjust dose/frequency as necessary. Thank you.
[2018-04-03] MEDS: D5W AND LACTATED RINGERS 1,000 ML IV SCH (13:41)
--- NOTE | 2018-04-03 14:40 | Hospitalist Progress Note ---
Date of Service April 03, 2018 Assessment & Plan (1) Osteomyelitis of ankle or foot, acute: 52 y/o F Hx Gout, PTSD, chronic lower back pain, hypothyoridism, admitted on April 03, 2018 because of possible osteomyelitis, had surgery on her L calcaneus and achilles tendon 12/2017 following an apparent stress fracture and achilles tear, had a nonhealing surgical wound at the posterior aspect of her L foot since that time. Recently has had increasing pain and swelling in her L posterior ankle. MRI was done, showed possible calcaneal osteomyelitis possible Osteomyelitis of ankle or foot, nonhealing surgical wound at the posterior aspect of L foot hx of treated for MRSA. The staff accountant recs for possible debridement and placement of a wound vac. cont MRSA coverage w likely need a PICC for extendd outpt treatment. ? NPO > midnight, will be per podiatry Gout - cont Allopurinol. Hypothyroidism - cont Synthroid PTSD - cont Clonazepam, Abilify, Mirtazipine Full code - SCDs NO PCP Subjective Left posterior ankle burning and pain and hot, associated with significant uncomfortable Denies fever and chills Review of Systems Constitutional: negative weakness, or fatigue Respiratory: no cough, sputum, wheezing, or dyspnea on exertion Cardiac: No chest pain, No orthopnea, No PND, No claudication, No palpitations , Abdomen: No pain, No nausea, No vomiting, No diarrhea, No constipation, No GI bleeding Musculoskeletal: see HPI, No muscle pain, No swelling, No calf pain, No problem reported : No dysuria, No urinary frequency, No incontinence, No hematuria Neurologic: No paralysis, No weakness, No numbness/tingling, No vertigo, No balance problems Psychiatric: No depression symptoms, No anhedonism, No anxiety, No insomnia, No substance abuse Heme: No abnormal bleeding/bruising, No clotting problems, No swollen lymph nodes, No night sweats Skin: No rash, No itch, No new/changing skin lesions, No color change, No bleeding Physical Exam 2 Vital Signs (Past 24 Hours): Last Vital Signs Temp 36.6 C 04/03/18 08:33 Pulse 82 04/03/18 08:33 Resp 16 04/03/18 08:33 BP 136/85 04/03/18 08:33 Pulse Ox 94 04/03/18 08:33 Physical Exam: General: Pleasant however in pain, AAO x 3, no distress EENT: No erythema or exudates, no thrush, ROSALINDA, EOMI Head and neck: Normocephalic, atraumatic, No JVD, neck is supple. Chest/heart: Nontender, S1,2, RRR, no murmurs, no gallops Lungs: CTAB, no wheezing or crackles Abdomen: Nontender, nondistended, BS+ Neuro: AAO x 3, speech is clear, no unilateral weakness or loss of sensation, coordination intact Musculoskeletal: No joint inflammation, muscle tenderness, FROM- aside form L foot - see extrem exam Skin: No acute rashes or ulcers Extremities: left poeterior ankle minimla edema /hot/red/ pain to palpation of heel/achilles area, no local open wound or drainage _ (1) Osteomyelitis of ankle or foot, acute Laterality: left Qualified Code(s): M86.172 - Other acute osteomyelitis, left ankle and foot
[2018-04-03] MEDS: ARIPiprazole 5 MG TAB PO SCH (20:36)
[2018-04-03] MEDS: MIRTAZAPINE TAB 15 MG TAB PO SCH (20:36)
[2018-04-03] MEDS: NAPROXEN 250 MG TAB PO SCH (20:38)
[2018-04-03] MEDS ORDERED: SUMAtriptan succinate 50 MG TAB PO STA (22:16)
[2018-04-04] MEDS: HYDROmorphone INJ 0.5 MG/0.5 ML SYR IV PRN ×4 (01:26→21:37)
[2018-04-04] MEDS: OXYCODONE HCL IR 5 MG TAB (IMMEDIATE RELEASE) PO PRN ×3 (05:13→23:56)
[2018-04-04] MEDS ORDERED: VANCOMYCIN TROUGH ONE (05:30)
--- NOTE | 2018-04-04 05:42 | Anesthesiology Consultation ---
Date of Service April 04, 2018 Assessment & Plan (1) Encounter for pre-operative examination: Chart Review Chart Review: Patient NOT seen in Pre Admission Testing Consults Requested none Additional Notes 52 yo female admitted due to left calcaneal osteomyelitis. She had surgery on left calcaneus and achilles tendon 12/2017 for achilles tear and calcaneal stress fracture, but her postoperative course has been complicated by non healing wound and MRSA. PMH is significant for gout, PTSD, low back pain, hypothyroidism. Order placed for preoperative EKG. History Surgery Operation Date: 04/04/18 07:35 Proposed Procedures p Left Calcaneal Bone Biopsy - Frankie Rodriguez Height/Weight Height: 5 ft 5 in Weight: 85 kg Allergies Allergy/AdvReac Type Severity Reaction Status Date / Time Latex, Natural Rubber Allergy Unknown Unverified 04/02/18 16:31 triamcinolone [From Kenalog] Allergy Unknown Unverified 04/02/18 16:31 Medications Home Medications Medication Instructions Recorded Confirmed Last Taken allopurinol 1 tab PO BID 04/02/18 04/02/18 04/02/18 almotriptan malate 1 tab PO DAILY PRN 04/02/18 04/02/18 Unknown aripiprazole 1 tab PO HS 04/02/18 04/02/18 04/01/18 clonazepam 0.5 mg PO DAILY PRN 04/02/18 04/02/18 Unknown cyclobenzaprine 1 tab PO TID 04/02/18 04/02/18 04/02/18 levothyroxine [Synthroid] 1 tab PO QAM 04/02/18 04/02/18 04/02/18 mirtazapine 1 tab PO HS 04/02/18 04/02/18 04/01/18 oxycodone-acetaminophen [Percocet] 1 tab PO Q4H PRN 04/02/18 04/02/18 Unknown pantoprazole 1 tab PO BID 04/02/18 04/02/18 04/02/18 Active Medications Generic Name Dose Route Start Last Admin Trade Name Freq PRN Reason Stop Dose Admin Allopurinol 300 mg 04/02/18 21:19 04/03/18 20:35 Zyloprim PO 05/02/18 21:18 300 mg BID YEVGENIY Administration Aripiprazole 5 mg 04/02/18 21:19 04/03/18 20:36 Abilify PO 05/02/18 21:18 5 mg HS YEVGENIY Administration Clonazepam 0.5 mg 04/02/18 21:19 04/03/18 08:20 Klonopin PO 05/02/18 21:18 0.5 mg DAILY PRN Administration Anxiety Cyclobenzaprine HCl 10 mg 04/02/18 21:19 04/03/18 20:36 Flexeril PO 05/02/18 21:18 10 mg TID YEVGENIY Administration Hydromorphone HCl 0.5 mg 04/02/18 21:19 04/04/18 01:26 Dilaudid IV 04/16/18 21:18 0.5 mg Q3H PRN Administration Pain Ceftriaxone Sodium 1,000 mg in 50 mls @ 100 mls/hr 04/02/18 23:00 04/03/18 23 :05 Rocephin IV 04/12/18 22:59 Infused Q24H EYVGENIY Infusion Vancomycin HCl 1,500 mg/ 530 mls @ 200 mls/hr 04/03/18 06:00 04/03/18 19:49 Sodium Chloride IV 05/15/18 05:59 Infused Q12H YEVGENIY Infusion Levothyroxine Sodium 88 mcg 04/03/18 06:30 04/03/18 05:58 Synthroid PO 05/03/18 06:29 88 mcg DAILYBB YEVGENIY Administration Mirtazapine 30 mg 04/02/18 21:19 04/03/18 20:36 Remeron PO 05/02/18 21:18 30 mg HS YEVGENIY Administration Naproxen 250 mg 04/03/18 21:00 04/03/18 20:38 Naprosyn PO 05/03/18 20:59 250 mg BID YEVGENIY Administration Ondansetron HCl 4 mg 04/02/18 21:19 04/03/18 19:32 Zofran IV 05/02/18 21:18 4 mg Q6H PRN Administration Nausea Oxycodone HCl 10 mg 04/02/18 21:19 04/04/18 05:13 Roxicodone Immediate Rel PO 04/16/18 21:18 10 mg Q4H PRN Administration Pain Pantoprazole Sodium 40 mg 04/02/18 21:19 04/03/18 20:35 Protonix PO 05/02/18 21:18 40 mg BID YEVGENIY Administration Past Medical History Medical History Osteomyelitis of ankle or foot, acute (Acute) Depression Gout High cholesterol Migraine Past Surgical History Surgical History H/O foot surgery Social History Smoking Status: Current every day smoker tobacco type: cigarettes Smoking cigarettes per day: 10 Do You Dip or Chew Tobacco: No Hx Alcohol Use: Yes Alcohol type: hard liquor alcohol intake frequency: a few times a week Alcohol Intake Frequency Comment: 2 a week Hx Substance Use: No Physical Exam Vital Signs Last Vital Signs Temp 36.6 C 04/03/18 22:58 Pulse 85 04/03/18 22:58 Resp 14 04/03/18 22:58 BP 161/89 H 04/03/18 22:58 Pulse Ox 93 04/03/18 22:58 Testing Laboratory Results 04/02/18 13:55 04/02/18 13:55
[2018-04-04 06:08] LABS: Basophils # (auto) 0.06 K/uL (0-0.2); Basophils % (auto) 1.3 %; Eosinophils # (auto) 0.27 K/uL (0-0.5); Eosinophils % (auto) 5.9 %; Hematocrit (blood only) 37.7 % (37-47); Hemoglobin 12.3 g/dL (12.0-16.0); Immature Granulocytes # (auto) 0.01 K/uL (0.00-0.02); Immature Granulocytes % (auto) 0.2 %; Lymphocytes # (auto) 1.85 K/uL (1.2-3.4); Lymphocytes % (auto) 40.3 %; Mean Corpuscular Hgb Conc 32.6 g/dL (32-36); Monocytes # (auto) 0.34 K/uL (0.11-0.59); Monocytes % (auto) 7.4 %; Neutrophils # (auto) 2.06 K/uL (1.4-6.5); Neutrophils % (auto) 44.9 %; Platelet Count 122 K/uL (130-400); RDW Coefficient of Variation 15.1 % (11.5-14.5); RDW Standard Deviation 52.3 fL (36.4-46.3); Red Blood Count 3.97 M/uL (4.2-5.4); White Blood Count 4.59 K/uL (4.8-10.8)
[2018-04-04] MEDS: VANCOMYCIN HCL 1,500 MG in SODIUM CHLORIDE 0.9% 500 ML IV SCH ×3 (06:25→19:33)
[2018-04-04] MEDS: LEVOTHYROXINE SODIUM 88 MCG TABLET PO SCH (06:26)
[2018-04-04] MEDS: NICOTINE 21 MG/24 HR TDSY TD SCH (06:29)
[2018-04-04 06:51] LABS: BUN Creatinine Ratio 9.9 (10-20); Calcium 8.4 mg/dl (8.5-10.1); Creatinine Clr Calc Pharmacy 100.4 ml/min; Est GFR (African American) 114.4; Est GFR (Non-African American) 98.7; Magnesium 1.7 mg/dl (1.8-2.4); Phosphorus 4.2 mg/dl (2.5-4.9); Potassium 3.8 mmol/L (3.5-5.1)
[2018-04-04] MEDS: CYCLOBENZAPRINE HCL 10 MG TAB PO SCH ×3 (07:34→21:23)
[2018-04-04] MEDS: ALLOPURINOL 300 MG TAB PO SCH ×2 (07:35→21:24)
[2018-04-04] MEDS: clonazePAM 0.5 MG TAB PO PRN (07:55)
[2018-04-04] MEDS ORDERED: MAGNESIUM SULFATE / D5W 1 GM/100 ML BAG IV ONE (08:00)
[2018-04-04 08:52] LABS: Appearance Urine Clear (Clear); Bacteria Urine Automated Negative (Negative); Bilirubin Urine Negative (Negative); Cast Urine Automated 0 /lpf (0-5); Color Urine Yellow; Glucose Urine UA Negative (Negative); Ketones Urine Negative (Negative); Leukocyte Esterase Urine Negative (Negative); Nitrite Urine Negative (Negative); Protein Urine 1+ (Negative); Specific Gravity Urine 1.011 (1.000-1.030); Urobilinogen Urine Negative (Negative); WBC Urine Automated 0 /hpf (0-5)
[2018-04-04] MEDS: PANTOprazole 40 MG TAB PO SCH ×2 (08:57→21:24)
[2018-04-04] MEDS: NAPROXEN 250 MG TAB PO SCH ×2 (08:57→21:21)
[2018-04-04] MEDS: MAGNESIUM OXIDE 400 MG TAB PO SCH ×2 (08:57→21:22)
--- NOTE | 2018-04-04 10:09 | Pharmacy Report ---
Pharmacy Abx Dose Progress Nt - Date of Service April 04, 2018 - Pharmacy Dosing Scope The patient is currently receiving the following antimicrobial agents per Pharmacy consult: Vancomycin 1500 mg IV every 12 hours - Objective Vital Signs (Past 12hrs): Vital Signs Temp Pulse Pulse Resp BP Pulse Ox 04/04/18 06:58 36.5 C 83 16 160/91 H 93 04/03/18 22:58 36.6 C 85 14 161/89 H 93 Lab Results (24hrs): Laboratory Tests (24 Hours) 04/04/18 04/04/18 04/04/18 05:42 05:42 05:42 WBC 4.59 L Neut # (Auto) 2.06 Creatinine 0.69 Est Cr Clr Drug Dosing 100.4 Vancomycin Trough 9.0 - Risk Factors for Resistance * History of infection with a multidrug-resistant organism: MRSA - Assessment & Plan Assessment 52 year old F receiving Vancomycin + Ceftriaxone for treatment of Osteo right foot Day # 3 of antimicrobial therapy Plan Vancomycin IV * Trough level of 9 mcg/mL is slightly subtherapeutic; however, dosing is not at steady state. * Continue dose of 1500 mg (17mg/kg) IV every 12 hours * Goal trough level for bones/joint : 15 to 20 mcg/mL * Trough level ordered for: 04/06/18 prior to 0600 dose Ceftriaxone * Not per pharmacy consult * Current dosing is adequate at 1,000mg IV Q24hrs Pharmacy will continue to follow and will adjust dose/frequency as necessary. Thank you.
--- NOTE | 2018-04-04 10:55 | Infectious Disease Consult ---
Date of Consultation April 04, 2018 Assessment & Plan (1) Post-operative infection: suspect degree of osteo due to chronicity of wound, previous culture growing MSSA and retained hardware. OR cultures may be negative due to extensive abx prior to culture. Even if OR cultures negative, would prefer to treat with 6 weeks IV abx. Will continue current abx pending culture results. If able to obtain outpatient culture to confirm MSSA. Blood cultures negative, ok for picc line. will need weekly cbc, cmp, esr, while on abx. can follow with ID post d/c final abx recs will be made based on OR cultures and review of outpatient culture results. will give course of fluconazole for vaginal yeast infection (2) Osteomyelitis of ankle or foot, acute: History of Present Illness Attending Physician: Dharmesh Tena MD, PhD, pt admitted with increased left foot pain. Had surgery on achilles tendon in 2017, states wound did not heal post op. had increased pain, intially thought due to gout. eventually saw urgent care and was referred to [facility] wound center. she states her wound was cultured and grew MSSA, no sensitivities to review. She was placed initially on keflex, then bactrim and finally augmentin. She states she did not have significant respose to po abx and continued to have drainage from wound. She was admitted here for IV abx after MRI was highly concerning for heel osteo. She is currently on vanco and rocephin, tolerating well. Blood cultures from ER are negative to date. no wound culture done. for OR later today for bone biospy. ESR elevated at 58, CRP 1. Re read of MRI now states changes in heel could be post op or osteo. She currently has vac on wound , placed here. has pain in foot but able to ambulate. She does admit to f/c at home but also states she is recovering from URI. afebrile since admission, wbc nml. no abd pain, no n/v/d, eating well. no cp, sob, cough. states she is concerned she is developing a vaginal yeast infection but has no gu symptoms. Hardware remains intact, no plans to remove as tendon not yet healed. Pt states she needs to be d/c by Saturday as they are planning to put their dog down on Saturday due to chronic illness. she also states she is traveling to [facility] in mid April as she is expecting a grandchild. Allergies Allergy/AdvReac Type Severity Reaction Status Date / Time Latex, Natural Rubber Allergy Unknown Unverified 04/02/18 16:31 triamcinolone [From Kenalog] Allergy Unknown Unverified 04/02/18 16:31 Home Medications Home Medications Medication Instructions Recorded Confirmed Type allopurinol 1 tab PO BID 04/02/18 04/02/18 History almotriptan malate 1 tab PO DAILY PRN 04/02/18 04/02/18 History aripiprazole 1 tab PO HS 04/02/18 04/02/18 History clonazepam 0.5 mg PO DAILY PRN 04/02/18 04/02/18 History cyclobenzaprine 1 tab PO TID 04/02/18 04/02/18 History levothyroxine [Synthroid] 1 tab PO QAM 04/02/18 04/02/18 History mirtazapine 1 tab PO HS 04/02/18 04/02/18 History oxycodone-acetaminophen [Percocet] 1 tab PO Q4H PRN 04/02/18 04/02/18 History pantoprazole 1 tab PO BID 04/02/18 04/02/18 History Patient History Medical History Osteomyelitis of ankle or foot, acute (Acute) Depression Gout High cholesterol Migraine Surgical History H/O foot surgery Social History Current Living Situation: Spouse Other Information That Helps Us Care for You: Yes (gluten free diet) Feels Safe at Home: Yes Safety Concerns: Feels Safe At This Time Smoking Status: Current every day smoker Tobacco Type: cigarettes Cigarettes per Day: 10 Do You Dip or Chew Tobacco: No Hx Alcohol Use: Yes Alcohol type: hard liquor Alcohol Intake Frequency: a few times a week Hx Substance Use: No Beliefs That Will Affect Care: None Preferred Language: Italian Communication Ability: Effective 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 Physical Exam 2 Vital Signs (Past 24 Hours): Last Vital Signs Temp 36.5 C 04/04/18 06:58 Pulse 83 04/04/18 06:58 Resp 16 04/04/18 06:58 BP 160/91 H 04/04/18 06:58 Pulse Ox 93 04/04/18 06:58 Constitutional: WD/WN, vitals as above Eyes: PERRL, conjunctivae normal, anicteric sclerae ENMT: external ear and nose normal, oropharynx normal Neck: normal visual inspection Respiratory: normal respiratory effort, lungs clear to auscultation Cardiovascular: RRR, no murmur, no edema Gastrointestinal (Abdomen): normal bowel sounds, soft, nontender, no hepatosplenomegaly Musculoskeletal: no cyanosis or clubbing, extremities motor strength 5/5 Skin: no rashes, warm and dry left foot vac in place, tender to touch, no erythema no warmth no swelling Psychiatric: A+Ox3, euthymic affect Results & Data Laboratory Results Microbiology 04/02/18 13:55 Blood Blood Culture - Preliminary No growth to date. 04/02/18 13:50 Blood Blood Culture - Preliminary No growth to date. _ (1) Post-operative infection Encounter type: initial encounter Postoperative infection type: superficial incisional surgical site Qualified Code(s): T81.41XA - Infection following a procedure, superficial incisional surgical site, initial encounter (2) Osteomyelitis of ankle or foot, acute Laterality: left Qualified Code(s): M86.172 - Other acute osteomyelitis, left ankle and foot
[2018-04-04] MEDS: FLUCONAZOLE 100 MG TAB PO SCH (11:51)
--- NOTE | 2018-04-04 15:11 | Hospitalist Progress Note ---
Date of Service April 04, 2018 Assessment & Plan (1) Osteomyelitis of ankle or foot, acute: (2) Post-operative infection: (3) Post-operative pain: 52 y/o F Hx Gout, PTSD, chronic lower back pain, hypothyoridism, admitted on April 03, 2018 because of possible osteomyelitis, had surgery on her L calcaneus and achilles tendon 12/2017 following an apparent stress fracture and achilles tear, had a nonhealing surgical wound at the posterior aspect of her L foot since that time. Recently has had increasing pain and swelling in her L posterior ankle. MRI was done, showed possible calcaneal osteomyelitis possible Osteomyelitis of ankle or foot, nonhealing surgical wound at the posterior aspect of L foot hx of treated for MRSA. The scoop filler recs for possible debridement and placement of a wound vac. cont MRSA coverage w likely need a PICC for extendd outpt treatment. Gout - cont Allopurinol. Hypothyroidism - cont Synthroid PTSD - cont Clonazepam, Abilify, Mirtazipine Infectious disease input appreciated, per report: suspect degree of osteo due to chronicity of wound, previous culture growing MSSA and retained hardware. OR cultures may be negative due to extensive abx prior to culture. prefer to treat with 6 weeks IV abx. Will continue current abx pending culture results. If able to obtain outpatient culture to confirm MSSA. will need weekly cbc, cmp, esr, while on abx. can follow with ID post d/c final abx recs will be made based on OR cultures and review of outpatient culture results. will give course of fluconazole for vaginal yeast infection Full code - SCDs NO PCP, will continue follow-up Subjective Left posterior ankle continue have burning and pain and hot, associated with significant uncomfortable Denies fever and chills Review of Systems Constitutional: negative weakness, or fatigue Respiratory: no cough, sputum, wheezing, or dyspnea on exertion Cardiac: No chest pain, No orthopnea, No PND, No claudication, No palpitations , Abdomen: No pain, No nausea, No vomiting, No diarrhea, No constipation, No GI bleeding Musculoskeletal: see HPI, No muscle pain, No swelling, No calf pain, No problem reported : No dysuria, No urinary frequency, No incontinence, No hematuria Neurologic: No paralysis, No weakness, No numbness/tingling, No vertigo, No balance problems Psychiatric: No depression symptoms, No anhedonism, No anxiety, No insomnia, No substance abuse Heme: No abnormal bleeding/bruising, No clotting problems, No swollen lymph nodes, No night sweats Skin: See above, No new/changing skin lesions, No color change, No bleeding Physical Exam 2 Vital Signs (Past 24 Hours): Last Vital Signs Temp 36.5 C 04/04/18 06:58 Pulse 83 04/04/18 06:58 Resp 16 04/04/18 06:58 BP 160/91 H 04/04/18 06:58 Pulse Ox 93 04/04/18 06:58 Physical Exam: General: in pain, no distress EENT: No erythema or exudates, no thrush, ROSALIDNA, EOMI Head and neck: Normocephalic, atraumatic, No JVD, neck is supple. Chest/heart: Nontender, S1,2, RRR, no murmurs, no gallops Lungs: CTAB, no wheezing or crackles Abdomen: Nontender, nondistended, BS+ Neuro: AAO x 3, speech is clear, no unilateral weakness or loss of sensation, coordination intact Musculoskeletal: No joint inflammation, muscle tenderness, FROM- aside form L foot - see extrem exam Skin: See below, Extremities: left poeterior ankle minimal edema /hot/red/ pain to palpation of heel/achilles area, no local open wound or drainage Results & Data Laboratory Results Laboratory Results - last 24 hr 04/03/18 04/04/18 04/04/18 14:54 05:42 05:42 WBC RBC Hgb Hct MCV MCH MCHC RDW Std Deviation RDW Coeff of Paul Plt Count MPV Immature Gran % (Auto) Neut % (Auto) Lymph % (Auto) Larue % (Auto) Eos % (Auto) Baso % (Auto) Immature Gran # (Auto) Neut # (Auto) Lymph # (Auto) Larue # (Auto) Eos # (Auto) Baso # (Auto) Sodium 138 Potassium 3.8 Chloride 105 Carbon Dioxide 26 Anion Gap 7.0 BUN 7 Creatinine 0.69 Est Cr Clr Drug Dosing 100.4 Est GFR ( Amer) 114.4 Est GFR (Non-Af Amer) 98.7 BUN/Creatinine Ratio 9.9 L Glucose 110 H Uric Acid 1.9 L Calcium 8.4 L Phosphorus 4.2 Magnesium 1.7 L Urine Color Urine Appearance Urine pH Ur Specific Lima Urine Protein Urine Glucose (UA) Urine Ketones Urine Blood Urine Nitrite Urine Bilirubin Urine Urobilinogen Ur Leukocyte Esterase Urine WBC (Auto) Urine RBC (Auto) U Hyaline Cast (Auto) U Epithel Cells (Auto) Urine Bacteria (Auto) Vancomycin Trough 9.0 04/04/18 04/04/18 05:42 08:35 WBC 4.59 L RBC 3.97 L Hgb 12.3 Hct 37.7 MCV 95.0 MCH 31.0 MCHC 32.6 RDW Std Deviation 52.3 H RDW Coeff of Paul 15.1 H Plt Count 122 L MPV 10.0 Immature Gran % (Auto) 0.2 Neut % (Auto) 44.9 Lymph % (Auto) 40.3 Larue % (Auto) 7.4 Eos % (Auto) 5.9 Baso % (Auto) 1.3 Immature Gran # (Auto) 0.01 Neut # (Auto) 2.06 Lymph # (Auto) 1.85 Larue # (Auto) 0.34 Eos # (Auto) 0.27 Baso # (Auto) 0.06 Sodium Potassium Chloride Carbon Dioxide Anion Gap BUN Creatinine Est Cr Clr Drug Dosing Est GFR ( Amer) Est GFR (Non-Af Amer) BUN/Creatinine Ratio Glucose Uric Acid Calcium Phosphorus Magnesium Urine Color Yellow Urine Appearance Clear Urine pH 7.0 Ur Specific Lima 1.011 Urine Protein 1+ H Urine Glucose (UA) Negative Urine Ketones Negative Urine Blood Negative Urine Nitrite Negative Urine Bilirubin Negative Urine Urobilinogen Negative Ur Leukocyte Esterase Negative Urine WBC (Auto) 0 Urine RBC (Auto) 0-4 U Hyaline Cast (Auto) 0 U Epithel Cells (Auto) 5-10 H Urine Bacteria (Auto) Negative Vancomycin Trough Microbiology 04/02/18 13:55 Blood Blood Culture - Preliminary No growth to date. 04/02/18 13:50 Blood Blood Culture - Preliminary No growth to date. Diagnostic Findings MRI results of per addendum and left lower extremity 04/03/2018. There was significant surgical shaving of the dorsal calcaneus at the time of surgery, and the signal abnormality with cortical loss identified by MRI likely represents expected postoperative change. There is only mild marrow edema identified at this site on the STIR weighted sequences. These findings are not definitive, and osteomyelitis would be impossible to exclude. Clinical correlation will be essential. The surgeon confirmed the presence of packing material within the patient's posterior wound. No organized fluid collection is identified. Additionally, there was a split repair of the the Achilles tendon. There is no evidence of re-tearing of the tendon based on the reported surgical history. _ (1) Osteomyelitis of ankle or foot, acute Laterality: left Qualified Code(s): M86.172 - Other acute osteomyelitis, left ankle and foot (2) Post-operative infection Encounter type: initial encounter Postoperative infection type: superficial incisional surgical site Qualified Code(s): T81.41XA - Infection following a procedure, superficial incisional surgical site, initial encounter
[2018-04-04] MEDS ORDERED: PROPOFOL IV EMULSION 10 MG/ML 20 ML VIAL IV ONE (15:45)
[2018-04-04] MEDS ORDERED: ONDANSETRON INJ 2 MG/ML 2 ML VIAL ONE (15:45)
[2018-04-04] MEDS ORDERED: LIDOCAINE HCL 2% 2 ML VIAL/AMP(20MG/ML) INFIL ONE (15:45)
[2018-04-04] MEDS ORDERED: DEXAMETHASONE SOD INJ 4 MG/ML VIAL ONE (15:45)
[2018-04-04] MEDS ORDERED: MIDAZOLAM HCL 1 MG/ML 2ML VIAL ONE (15:46)
[2018-04-04] MEDS ORDERED: fentaNYL citrate 100 MCG/2 ML VIAL ONE ×3 (15:46→16:56)
--- NOTE | 2018-04-04 16:03 | History & Physical Bridge Note ---
Date of Service April 04, 2018 History & Physical Bridge Note I have examined the patient, reviewed the History & Physical and in the interval since the performance of the History & Physical I have noted the following changes of clinical significance: no changes noted. Plan for left heel bone biopsy under general anesthesia with reapplication of wound vac.
[2018-04-04] MEDS ORDERED: BUPIVACAINE 0.5 % 5 MG/1 ML MPF 30ML VIAL ONE (16:11)
--- NOTE | 2018-04-04 17:06 | Post Operative Brief Note ---
Immediate Post Op Note v1 Date of Surgery April 04, 2018 Pre & Post Diagnosis Operation Date: 04/04/18 07:35 Pre-Op Diagnosis: OSTEOMYELITIS Post-Op Diagnosis: OSTEOMYELITIS Procedure Operation Date: 04/04/18 07:35 Actual Procedures p Left Calcaneal Bone Biopsy(Left) - Frankie Rodriguez Surgeon Frankie Rodriguez Final Tester none Estimated Blood Loss 10 Findings Consistent with Post-Op Diagnosis
--- NOTE | 2018-04-04 17:09 | Fluoroscopy Report ---
[place] fluoroscopy <1hr CLINICAL HISTORY: LEFT CALCANEUS BONE BIOPSY COMPARISON STUDY: MRI dated 04/02/2018 FLUOROSCOPY TIME: 5 seconds. NUMBER OF FLUOROSCOPIC IMAGES: 1 FINDINGS: A single intraoperative fluoroscopic spot image reveals postsurgical changes involving the posterior calcaneus. IMPRESSION: Intraoperative fluoroscopic spot image of the calcaneus. Electronically signed by: Weston Hernandez M.D. 04/04/2018 5:07 PM
--- NOTE | 2018-04-04 17:19 | Operative Report ---
Post Operative Report Pre & Post Diagnosis Operation Date: 04/04/18 07:35 Pre-Op Diagnosis: OSTEOMYELITIS Post-Op Diagnosis: OSTEOMYELITIS Procedure Operation Date: 04/04/18 07:35 Actual Procedures p Left Calcaneal Bone Biopsy(Left) - Frankie Rodriguez Surgeon Frankie Rodriguez Electrical Engineer none Estimated Blood Loss 10 Findings Consistent with Post-Op Diagnosis Specimens Posterior superior calcaneus Description of Procedure This is a 52-year-old female well-known to me from the outpatient service who is status post retrocalcaneal exostosis resection with flexor hallucis longus tendon transfer and subsequent wound dehiscence and suspected osteomyelitis of the left calcaneus. Due to the ended determinate nature of the MRI that was done in discussion with the radiologist it was deemed best to do a calcaneal bone biopsy to determine whether or not true osteomyelitis is present. Please see my last clinical note for the full HPI. Patient was taken to the preoperative holding area to the operating room placed table in normal supine position. Attention was directed to left lower extremity and after induction of general anesthesia the left calf tourniquet was applied. Timeout was performed the left lower extremity was prepped and draped in normal sterile fashion. Left lower extremity was elevated exsanguinated and tourniquet was inflated to 2 and 50 mmHg. A posterior medial incision between the neurovascular bundle and the Achilles tendon was mapped out using C arm and skin marker. Incision was at the dorsal apex of the posterior margin of the calcaneus. Incision was mapped out and made carried down to the subcutaneous tissue with care to retract all vital neurovascular structures dissection was carried down to the level of the posterior superior calcaneus. This is the site of supposed infection. No abscesses were noted on the anterior surface of the Achilles tendon. Rongeurs and curettes were used to obtain bone biopsies from multiple sites of the posterior superior calcaneus. The specimens were sent to pathology for evaluation. Deep wound cultures were obtained intraoperatively. At this time the site was flushed with copious amounts of normal sterile saline. Attention was then directed posteriorly to the Achilles tendon where the visualized FireWire from the previous Achilles tendon repair was resected. All nonviable tissue was debrided from the posterior wound sharply at the level of full thickness. No purulence was noted however moderate undermining. The site was flushed with copious amounts of normal sterile saline. The incision site was then closed with 3-0 Prolene in an interrupted fashion. No layered closure was utilized due to concern for osteomyelitis and an active infection. Vicryl was deemed unwarranted for layered closure. Posterior wound was packed deeply to surrounding margins with black foam from the wound VAC. Incisional wound VAC foam was then placed over the incision site to the medial heel. Wound VAC was then applied seal was checked. Settings are set at 150 mm continuous pressure. This will stay on to be managed by the wound ostomy team on the floor. Tourniquet was deflated and immediate neurovascular status returned to left lower extremity. She tolerated the anesthesia procedure well and was transported to the PACU with vital signs stable neurovascular status intact to the left lower extremity. Family was contacted postoperatively to discuss the case in detail. I will continue to follow her while in house. She should remain nonweightbearing while the wound VAC is in place. I attest to the content of the Intraoperative Record and any orders documented therein. Any exceptions are noted below.
[2018-04-04] MEDS ORDERED: ONDANSETRON INJ 2 MG/ML 2 ML VIAL IV PRN (17:27)
[2018-04-04] MEDS ORDERED: ePHEDrine sulfate 50 MG/ML AMP IV PRN (17:27)
[2018-04-04] MEDS ORDERED: HYDROmorphone INJ 1 MG/ML SYRINGE IV PRN (17:27)
[2018-04-04] MEDS ORDERED: ATROPINE SULFATE 0.1 MG/ML 10ML SYR IV PRN (17:27)
[2018-04-04] MEDS: fentaNYL citrate 100 MCG/2 ML VIAL IV PRN ×4 (17:31→17:46)
[2018-04-04] MEDS: LISINOPRIL 10 MG TAB PO SCH (21:19)
[2018-04-04] MEDS: MIRTAZAPINE TAB 15 MG TAB PO SCH (21:22)
[2018-04-04] MEDS: ARIPiprazole 5 MG TAB PO SCH (21:22)
[2018-04-04] MEDS: cefTRIAXone SODIUM 1,000 MG/50 ML BAG IV SCH (23:55)
[2018-04-05] MEDS: HYDROmorphone INJ 0.5 MG/0.5 ML SYR IV PRN ×4 (02:39→18:14)
[2018-04-05] MEDS: VANCOMYCIN HCL 1,500 MG in SODIUM CHLORIDE 0.9% 500 ML IV SCH ×2 (06:04→18:46)
[2018-04-05] MEDS: LEVOTHYROXINE SODIUM 88 MCG TABLET PO SCH (06:04)
[2018-04-05] MEDS: NICOTINE 21 MG/24 HR TDSY TD SCH (06:06)
[2018-04-05 06:15] LABS: Basophils # (auto) 0.02 K/uL (0-0.2); Basophils % (auto) 0.4 %; Hematocrit (blood only) 38.5 % (37-47); Hemoglobin 12.6 g/dL (12.0-16.0); Immature Granulocytes # (auto) 0.01 K/uL (0.00-0.02); Immature Granulocytes % (auto) 0.2 %; Lymphocytes # (auto) 0.79 K/uL (1.2-3.4); Mean Corpuscular Hgb Conc 32.7 g/dL (32-36); Mean Corpuscular Volume 94.6 fL (80-100); Mean Platelet Volume 10.5 fL (7.4-10.4); Monocytes # (auto) 0.16 K/uL (0.11-0.59); Monocytes % (auto) 2.8 %; Neutrophils # (auto) 4.66 K/uL (1.4-6.5); Neutrophils % (auto) 82.6 %; Platelet Count 140 K/uL (130-400); RDW Coefficient of Variation 14.6 % (11.5-14.5); RDW Standard Deviation 50.5 fL (36.4-46.3); Red Blood Count 4.07 M/uL (4.2-5.4); White Blood Count 5.64 K/uL (4.8-10.8)
[2018-04-05 06:41] LABS: BUN Creatinine Ratio 11.3 (10-20); Calcium 8.4 mg/dl (8.5-10.1); Creatinine Clr Calc Pharmacy 91.1 ml/min; Est GFR (African American) 103.1; Est GFR (Non-African American) 88.9; Magnesium 1.9 mg/dl (1.8-2.4); Potassium 4.3 mmol/L (3.5-5.1)
[2018-04-05 06:48] LABS: Phosphorus 3.3 mg/dl (2.5-4.9)
[2018-04-05] MEDS: OXYCODONE HCL IR 5 MG TAB (IMMEDIATE RELEASE) PO PRN ×4 (07:34→21:08)
--- NOTE | 2018-04-05 08:37 | Anesthesiology Progress Note ---
Date of Service April 05, 2018 Anesthesia Post Procedure Vital Signs Vital Signs: Temp Pulse Pulse Pulse Resp BP BP 04/05/18 07:51 36.6 C 79 16 04/05/18 02:50 36.5 C 81 14 144/85 H 04/04/18 22:58 36.8 C 80 14 164/87 H 04/04/18 20:22 89 16 155/91 H 04/04/18 19:21 36.7 C 88 16 04/04/18 18:53 77 18 04/04/18 18:20 36.4 C L 84 18 04/04/18 18:00 36.2 C L 81 16 151/86 H 04/04/18 17:50 83 16 144/81 H 04/04/18 17:40 82 16 134/94 04/04/18 17:30 87 16 138/85 04/04/18 17:20 96 H 98 H 17 154/91 H 154/91 H 04/04/18 17:15 101 H 18 135/88 04/04/18 17:12 103 H 14 04/04/18 17:11 36.4 C L 107 H 17 141/92 H 04/04/18 17:10 106 H 18 141/92 H 04/04/18 15:46 36.8 C 78 16 149/95 H BP Pulse Ox 04/05/18 07:51 118/75 92 04/05/18 02:50 92 04/04/18 22:58 91 04/04/18 20:22 94 04/04/18 19:21 156/90 H 16 L 04/04/18 18:53 156/88 H 94 04/04/18 18:20 135/82 94 04/04/18 18:00 96 04/04/18 17:50 98 04/04/18 17:40 95 04/04/18 17:30 99 04/04/18 17:20 98 04/04/18 17:15 96 04/04/18 17:12 95 04/04/18 17:11 93 04/04/18 17:10 93 04/04/18 15:46 94 Pain Intensity Left Foot: Pain Intensity: 8 Notes Mental Status: alert / awake / arousable Patient Amnestic to Procedure: Yes Nausea / Vomiting: adequately controlled Pain: adequately controlled Airway Patency, RR, SpO2: stable & adequate BP & HR: stable & adequate Hydration State: stable & adequate Anesthetic Complications: no major complications apparent and Pt Satisfied with anesthetic care
[2018-04-05] MEDS: ALLOPURINOL 300 MG TAB PO SCH ×2 (08:54→20:59)
[2018-04-05] MEDS: FLUCONAZOLE 100 MG TAB PO SCH (08:54)
[2018-04-05] MEDS: MAGNESIUM OXIDE 400 MG TAB PO SCH ×2 (08:55→20:58)
[2018-04-05] MEDS: NAPROXEN 250 MG TAB PO SCH ×2 (08:55→20:58)
[2018-04-05] MEDS: LISINOPRIL 10 MG TAB PO SCH (08:55)
[2018-04-05] MEDS: CYCLOBENZAPRINE HCL 10 MG TAB PO SCH ×3 (08:55→20:58)
[2018-04-05] MEDS: PANTOprazole 40 MG TAB PO SCH ×2 (08:55→20:57)
--- NOTE | 2018-04-05 09:19 | Orthopedic Progress Note ---
Date of Service April 05, 2018 Assessment & Plan (1) Encounter for pre-operative examination: S/P Bone biopsy POD#1 of left posterior superior calcaneus for suspicion of osteomyelitis - VAC in place functioning well without SOI present today and no drainage noted. Dressing is CDI. She will need continued NWB to ensure good seal and prevent vac leakage. - Cultures from OR are pending at this time. WBC and vitals are stable. - Will require vac going home. No vac changes until saturday. - ID input appreciated. Awaiting culture results for final recommendations. - Will continue to follow (2) Post-operative infection: Subjective Pt seen resting at bedside in NAD. She admits to pain overnight with poor sleep. She denies any NVFC. She wishes to leave hospital [facility]. Denies calf pain chest pain or SOB at today's visit. Physical Exam 2 Vital Signs (Past 24 Hours): Last Vital Signs Temp 36.6 C 04/05/18 07:51 Pulse 79 04/05/18 07:51 Resp 16 04/05/18 07:51 BP 118/75 04/05/18 07:51 Pulse Ox 92 04/05/18 07:51 Physical Exam: VSS NAD AAOx3 VAC in place LLE without complications, draining well and no leaking noted Dressing was CDI to LLE No surrounding erythema is noted _ (1) Post-operative infection Encounter type: initial encounter Postoperative infection type: superficial incisional surgical site Qualified Code(s): T81.41XA - Infection following a procedure, superficial incisional surgical site, initial encounter
[2018-04-05] MEDS: clonazePAM 0.5 MG TAB PO PRN (14:55)
--- NOTE | 2018-04-05 15:20 | Hospitalist Progress Note ---
Date of Service April 05, 2018 Assessment & Plan (1) Osteomyelitis of ankle or foot, acute: (2) Post-operative infection: (3) Post-operative pain: 52 y/o F Hx Gout, PTSD, chronic lower back pain, hypothyoridism, admitted on April 03, 2018 because of possible osteomyelitis, had surgery on her L calcaneus and achilles tendon 12/2017 following an apparent stress fracture and achilles tear, had a nonhealing surgical wound at the posterior aspect of her L foot since that time. Recently has had increasing pain and swelling in her L posterior ankle. MRI was done, showed possible calcaneal osteomyelitis possible Osteomyelitis of ankle or foot, nonhealing surgical wound at the posterior aspect of L foot hx of treated for MRSA. The ion implant machine operator recs for possible debridement and placement of a wound vac. Wound cultures shows GBS S/P Bone biopsy POD#2 of left posterior superior calcaneus for suspicion of osteomyelitis VAC in place functioning well , per recs: need continued NWB to ensure good seal and prevent vac leakage. Cultures from OR are pending at this time, Will require vac going home. No vac changes until saturday. ID input appreciated. Awaiting culture results for final recommendations. s requested PICC for extendd outpt treatment. Gout - cont Allopurinol, and naproxen Hypothyroidism - cont Synthroid PTSD - cont Clonazepam, Abilify, Mirtazipine Infectious disease input appreciated, prefer to treat with 6 weeks IV abx. will need weekly cbc, cmp, esr, while on abx. can follow with ID post d/c final abx recs will be made based on OR cultures and review of outpatient culture results. cont course of fluconazole for vaginal yeast infection Full code - SCDs NO PCP, will need navigator to set up one Subjective Left posterior ankle continue have burning and pain and hot, associated with significant uncomfortable Denies fever and chills Review of Systems Constitutional: negative weakness, or fatigue Respiratory: no cough, sputum, wheezing, or dyspnea on exertion Cardiac: No chest pain, No orthopnea, No PND, Abdomen: No pain, No nausea, No vomiting, No diarrhea, No constipation, No GI bleeding Musculoskeletal: see HPI, No muscle pain, No swelling, : No dysuria, No urinary frequency, No incontinence, No hematuria Neurologic: No paralysis, No weakness, No numbness/tingling, Psychiatric: No depression symptoms, No anhedonism, No anxiety, No insomnia, No substance abuse Heme: No abnormal bleeding/bruising, No clotting problems, Skin: See above, No new/changing skin lesions, No color change, No bleeding Physical Exam 2 Vital Signs (Past 24 Hours): Last Vital Signs Temp 36.6 C 04/05/18 11:02 Pulse 87 04/05/18 11:02 Resp 16 04/05/18 11:02 BP 126/76 04/05/18 11:02 Pulse Ox 93 04/05/18 11:02 Physical Exam: General: Pleasant however in pain, AAO x 3, no distress EENT: No erythema or exudates, no thrush, ROSALINDA, EOMI Head and neck: Normocephalic, atraumatic, No JVD, neck is supple. Chest/heart: Nontender, S1,2, RRR, no murmurs, no gallops Lungs: CTAB, no wheezing or crackles Abdomen: Nontender, nondistended, BS+ Neuro: AAO x 3, speech is clear, no unilateral weakness or loss of sensation, coordination intact Musculoskeletal: No joint inflammation, muscle tenderness, FROM- aside form L foot - see extrem exam Skin: No acute rashes or ulcers Extremities: left s/p procedure, on wound vac, in dress Results & Data Laboratory Results Laboratory Results - last 24 hr 04/05/18 04/05/18 05:18 05:18 WBC 5.64 RBC 4.07 L Hgb 12.6 Hct 38.5 MCV 94.6 MCH 31.0 MCHC 32.7 RDW Std Deviation 50.5 H RDW Coeff of Paul 14.6 H Plt Count 140 MPV 10.5 H Immature Gran % (Auto) 0.2 Neut % (Auto) 82.6 Lymph % (Auto) 14.0 Gem % (Auto) 2.8 Eos % (Auto) 0.0 Baso % (Auto) 0.4 Immature Gran # (Auto) 0.01 Neut # (Auto) 4.66 Lymph # (Auto) 0.79 L Gem # (Auto) 0.16 Eos # (Auto) 0.00 Baso # (Auto) 0.02 Sodium 136 Potassium 4.3 Chloride 102 Carbon Dioxide 28 Anion Gap 6.0 BUN 9 Creatinine 0.76 Est Cr Clr Drug Dosing 91.1 Est GFR ( Amer) 103.1 Est GFR (Non-Af Amer) 88.9 BUN/Creatinine Ratio 11.3 Glucose 175 H Calcium 8.4 L Phosphorus 3.3 Magnesium 1.9 Microbiology 04/04/18 16:00 Foot,Left Gram Stain - Final 04/04/18 16:00 Foot,Left Aerobic and Anaerobic Culture - Preliminary Staphylococcus aureus Group B Beta Strep _ (1) Osteomyelitis of ankle or foot, acute Laterality: left Qualified Code(s): M86.172 - Other acute osteomyelitis, left ankle and foot (2) Post-operative infection Encounter type: initial encounter Postoperative infection type: superficial incisional surgical site Qualified Code(s): T81.41XA - Infection following a procedure, superficial incisional surgical site, initial encounter
[2018-04-05] MEDS: ACETAMINOPHEN 325 MG TAB PO PRN ×2 (15:46→22:46)
[2018-04-05] MEDS ORDERED: VANCOMYCIN TROUGH ONE (17:30)
[2018-04-05] MEDS ORDERED: Nursing to Pharmacy Communication ONE (18:35)
--- NOTE | 2018-04-05 19:10 | Pharmacy Report ---
Pharmacy Abx Dose Short Note - Date of Service April 05, 2018 - Assessment & Plan Assessment 52 year old F receiving vancomycin for treatment of osteomyelitis. Pt has a history of MRSA. Day # 4 of antimicrobial therapy. Plan Vancomycin * Trough level of 10 mcg/mL is subtherapeutic * Halflife ~5.7hrs based on Ke=0.12 * Change to 1500 mg IV every 8 hours * Goal trough level for osteo : ~ 20 mcg/mL * Trough level ordered for: 04/06/18 @3558 Pharmacy will continue to follow and will adjust dose/frequency as necessary. Thank you.
[2018-04-05] MEDS: ARIPiprazole 5 MG TAB PO SCH (20:57)
[2018-04-05] MEDS: MIRTAZAPINE TAB 15 MG TAB PO SCH (20:58)
[2018-04-05] MEDS: cefTRIAXone SODIUM 1,000 MG/50 ML BAG IV SCH (22:03)
[2018-04-06] MEDS: HYDROmorphone INJ 0.5 MG/0.5 ML SYR IV PRN ×5 (00:41→19:50)
[2018-04-06] MEDS: VANCOMYCIN HCL 1,500 MG in SODIUM CHLORIDE 0.9% 500 ML IV SCH ×2 (02:45→10:40)
[2018-04-06] MEDS: OXYCODONE HCL IR 5 MG TAB (IMMEDIATE RELEASE) PO PRN ×5 (02:46→23:09)
[2018-04-06] MEDS: ACETAMINOPHEN 325 MG TAB PO PRN ×2 (04:55→18:44)
[2018-04-06] MEDS: LEVOTHYROXINE SODIUM 88 MCG TABLET PO SCH (05:29)
[2018-04-06] MEDS ORDERED: VANCOMYCIN TROUGH ONE ×2 (05:30→17:30)
[2018-04-06] MEDS: NICOTINE 21 MG/24 HR TDSY TD SCH (06:02)
[2018-04-06 07:00] LABS: Creatinine Clr Calc Pharmacy 101.8 ml/min; Est GFR (African American) 114.9; Est GFR (Non-African American) 99.2
--- NOTE | 2018-04-06 07:59 | Infectious Disease Progress Nt ---
Date of Service April 06, 2018 Assessment & Plan (1) Post-operative infection: suspect degree of osteo due to chronicity of wound, previous culture growing MSSA and retained hardware. OR cultures growing S. aureus and GBS, final pending. would prefer to treat with 6 weeks IV abx. Will continue current abx pending culture results. If able to obtain outpatient culture to confirm MSSA. Blood cultures negative, ok for picc line. will need weekly cbc, cmp, esr, while on abx. can follow with ID post d/c If OR cultures + for MSSA would continue on rocephin, if OR cultures growing MRSA will need to continue with Vanco, will need weekly vanco trough (maintain 15-20) while on vanco, in addition to above weekly labs. will give course of fluconazole for vaginal yeast infection (2) Osteomyelitis of ankle or foot, acute: Subjective 04/04 OR culture growing S. aureus and GBS, awaiting final. remains on vanco and rocephin, tolerating well. afebrile. blood cultures remain negative. Physical Exam 2 Vital Signs (Past 24 Hours): Last Vital Signs Temp 36.4 C L 04/06/18 07:13 Pulse 67 04/06/18 07:13 Resp 16 04/06/18 07:13 BP 157/89 H 04/06/18 07:13 Pulse Ox 95 04/06/18 07:13 Results & Data Laboratory Results Microbiology 04/04/18 16:00 Foot,Left Gram Stain - Final 04/04/18 16:00 Foot,Left Aerobic and Anaerobic Culture - Preliminary Staphylococcus aureus Group B Beta Strep 04/02/18 13:55 Blood Blood Culture - Preliminary No growth to date. 04/02/18 13:50 Blood Blood Culture - Preliminary No growth to date. _ (1) Post-operative infection Encounter type: initial encounter Postoperative infection type: superficial incisional surgical site Qualified Code(s): T81.41XA - Infection following a procedure, superficial incisional surgical site, initial encounter (2) Osteomyelitis of ankle or foot, acute Laterality: left Qualified Code(s): M86.172 - Other acute osteomyelitis, left ankle and foot
[2018-04-06] MEDS: ALLOPURINOL 300 MG TAB PO SCH ×2 (09:03→21:56)
[2018-04-06] MEDS: CYCLOBENZAPRINE HCL 10 MG TAB PO SCH ×3 (09:04→21:56)
[2018-04-06] MEDS: FLUCONAZOLE 100 MG TAB PO SCH (09:04)
[2018-04-06] MEDS: LISINOPRIL 10 MG TAB PO SCH (09:04)
[2018-04-06] MEDS: NAPROXEN 250 MG TAB PO SCH ×2 (09:04→21:56)
[2018-04-06] MEDS: MAGNESIUM OXIDE 400 MG TAB PO SCH ×2 (09:04→21:56)
[2018-04-06] MEDS: PANTOprazole 40 MG TAB PO SCH ×2 (09:04→21:56)
--- NOTE | 2018-04-06 10:49 | Hospitalist Progress Note ---
Date of Service April 06, 2018 Assessment & Plan (1) Osteomyelitis of ankle or foot, acute: (2) Post-operative infection: (3) Post-operative pain: 52 y/o F Hx Gout, PTSD, chronic lower back pain, hypothyoridism, admitted on April 03, 2018 because of possible osteomyelitis, had surgery on her L calcaneus and achilles tendon 12/2017 following an apparent stress fracture and achilles tear, had a nonhealing surgical wound at the posterior aspect of her L foot since that time. Recently has had increasing pain and swelling in her L posterior ankle. MRI was done, showed possible calcaneal osteomyelitis possible Osteomyelitis of ankle or foot, nonhealing surgical wound at the posterior aspect of L foot hx of treated for MRSA. S/P Bone biopsy POD#3 of left posterior superior calcaneus for suspicion of osteomyelitis VAC in place functioning well , per recs: need continued NWB to ensure good seal and prevent vac leakage. Cultures from OR show: Staphylococcus aureus, Group B Beta Strep, discussed with infectious disease, patient will need Rocephin 2 g IV daily for 6 weeks, prescription in the chart, will let correctional counselor/case manager know Will require vac going home. No vac changes until saturday. Wound VAC need insurance company authorization ID input appreciated. has PICC for extendd outpt treatment. Gout - cont Allopurinol, and naproxen Hypothyroidism - cont Synthroid PTSD - cont Clonazepam, Abilify, Mirtazipine Full code - SCDs NO PCP, will need navigator to set up one, patient can follow-up with infectious disease Possible okay to discharge tomorrow, however need to have correctional counselor/case manager to have wound VAC authorization, and home abx infusion setting up, for 6-week of antibiotic of Rocephin, need to have follow-up appointment with infectious disease Subjective Left posterior ankle continue have burning and pain and hot, associated with significant uncomfortable, occasionally require IV pain medication Denies fever and chills Review of Systems Constitutional: negative weakness, or fatigue Respiratory: no cough, sputum, wheezing, or dyspnea on exertion Cardiac: No chest pain, No orthopnea, No PND, Abdomen: No pain, No nausea, No vomiting, No diarrhea, Musculoskeletal: see HPI, No muscle pain, No swelling, : No dysuria, No urinary frequency, No incontinence, No hematuria Neurologic: No paralysis, No weakness, No numbness/tingling, Psychiatric: No depression symptoms, No anhedonism, Heme: No abnormal bleeding/bruising, No clotting problems, Skin: See above, No new/changing skin lesions, No color change, No bleeding Physical Exam 2 Vital Signs (Past 24 Hours): Last Vital Signs Temp 36.4 C L 04/06/18 07:13 Pulse 67 04/06/18 07:13 Resp 16 04/06/18 07:13 BP 157/89 H 04/06/18 07:13 Pulse Ox 95 04/06/18 07:13 Physical Exam: General: Pleasant , conversational, AAO x 3, no distress EENT: No erythema or exudates, no thrush, ROSALINDA, EOMI Head and neck: Normocephalic, atraumatic, No JVD, neck is supple. Chest/heart: Nontender, S1,2, RRR, no murmurs, no gallops Lungs: CTAB, no wheezing or crackles Abdomen: Nontender, nondistended, BS+ Neuro: AAO x 3, speech is clear, no unilateral weakness or loss of sensation, coordination intact Musculoskeletal: L foot in dressing, wound VAC in place, Skin: No acute rashes or ulcers Extremities: left s/p procedure, on wound vac, in dress Results & Data Laboratory Results Laboratory Results - last 24 hr 04/05/18 04/06/18 17:39 05:49 Creatinine 0.68 Est Cr Clr Drug Dosing 101.8 Est GFR ( Amer) 114.9 Est GFR (Non-Af Amer) 99.2 Vancomycin Trough 10.0 Microbiology 04/04/18 16:00 Foot,Left Gram Stain - Final 04/04/18 16:00 Foot,Left Aerobic and Anaerobic Culture - Preliminary Staphylococcus aureus Group B Beta Strep _ (1) Post-operative infection Encounter type: initial encounter Postoperative infection type: superficial incisional surgical site Qualified Code(s): T81.41XA - Infection following a procedure, superficial incisional surgical site, initial encounter (2) Osteomyelitis of ankle or foot, acute Laterality: left Qualified Code(s): M86.172 - Other acute osteomyelitis, left ankle and foot
[2018-04-06] MEDS: MIRTAZAPINE TAB 15 MG TAB PO SCH (21:56)
[2018-04-06] MEDS: ARIPiprazole 5 MG TAB PO SCH (21:56)
[2018-04-06] MEDS ORDERED: cefTRIAXone SODIUM 2,000 MG in DEXTROSE 5% 50 ML IV SCH (23:00)
[2018-04-07] MEDS: HYDROmorphone INJ 0.5 MG/0.5 ML SYR IV PRN ×5 (02:55→20:40)
[2018-04-07] MEDS: OXYCODONE HCL IR 5 MG TAB (IMMEDIATE RELEASE) PO PRN ×5 (05:51→23:28)
[2018-04-07] MEDS: LEVOTHYROXINE SODIUM 88 MCG TABLET PO SCH (06:15)
[2018-04-07] MEDS: NICOTINE 21 MG/24 HR TDSY TD SCH (06:16)
--- NOTE | 2018-04-07 08:15 | Anesthesiology Progress Note ---
Date of Service April 07, 2018 Anesthesia Post Procedure Vital Signs Vital Signs: Temp Pulse Resp BP BP Pulse Ox 04/07/18 06:58 36.5 C 70 18 151/87 H 94 04/06/18 22:50 36.6 C 75 18 153/87 H 95 04/06/18 15:05 36.4 C L 77 17 158/90 H 96 Notes Mental Status: alert / awake / arousable and participated in evaluation Patient Amnestic to Procedure: Yes Nausea / Vomiting: adequately controlled Pain: adequately controlled Airway Patency, RR, SpO2: stable & adequate BP & HR: stable & adequate Hydration State: stable & adequate Anesthetic Complications: no major complications apparent and Pt Satisfied with anesthetic care Notes: Patient has mild bruising on right upper/anterior thigh in the shape of a rectangle. This superficial bruising is consistent with the placement of the cautery grounding pad, as indicated in the OR record. Patient denies pain around area of bruising and states that she is sensisitive to adhesives. The patient was informed of the cause of the bruising.
[2018-04-07] MEDS: ALLOPURINOL 300 MG TAB PO SCH ×2 (08:18→20:37)
[2018-04-07] MEDS: LISINOPRIL 10 MG TAB PO SCH (08:18)
[2018-04-07] MEDS: PANTOprazole 40 MG TAB PO SCH ×2 (08:19→20:36)
[2018-04-07] MEDS: CYCLOBENZAPRINE HCL 10 MG TAB PO SCH ×3 (08:19→20:36)
[2018-04-07] MEDS: FLUCONAZOLE 100 MG TAB PO SCH (08:19)
[2018-04-07] MEDS: MAGNESIUM OXIDE 400 MG TAB PO SCH ×2 (08:19→20:36)
[2018-04-07] MEDS: NAPROXEN 250 MG TAB PO SCH ×2 (08:19→20:36)
--- NOTE | 2018-04-07 11:04 | Infectious Disease Progress Nt ---
Date of Service April 07, 2018 Assessment & Plan (1) Post-operative infection: suspect degree of osteo due to chronicity of wound, previous culture growing MSSA and retained hardware. OR cultures growing MSSA and GBS. would prefer to treat with 6 weeks IV abx. If able to obtain outpatient culture to confirm MSSA. Blood cultures negative, ok for picc line. will need weekly cbc, cmp, esr, while on abx. can follow with ID post d/c can continue with rocephin, 2g daily x 6 weeks. discussed with primary service. ok for d/c when otherwise stable. will give course of fluconazole for vaginal yeast infection (2) Osteomyelitis of ankle or foot, acute: Subjective 04/04 OR culture growing MSSA and GBS, sensitive to rocephin, remains on rocephin , tolerating well. afebrile. blood cultures remain negative. Physical Exam 2 Vital Signs (Past 24 Hours): Last Vital Signs Temp 36.5 C 04/07/18 06:58 Pulse 70 04/07/18 06:58 Resp 18 04/07/18 06:58 BP 151/87 H 04/07/18 06:58 Pulse Ox 94 04/07/18 06:58 Results & Data Laboratory Results Microbiology 04/04/18 16:00 Foot,Left Gram Stain - Final 04/04/18 16:00 Foot,Left Aerobic and Anaerobic Culture - Preliminary Staphylococcus aureus Group B Beta Strep 04/02/18 13:55 Blood Blood Culture - Preliminary No growth to date. 04/02/18 13:50 Blood Blood Culture - Preliminary No growth to date. _ (1) Post-operative infection Encounter type: initial encounter Postoperative infection type: superficial incisional surgical site Qualified Code(s): T81.41XA - Infection following a procedure, superficial incisional surgical site, initial encounter (2) Osteomyelitis of ankle or foot, acute Laterality: left Qualified Code(s): M86.172 - Other acute osteomyelitis, left ankle and foot
--- NOTE | 2018-04-07 15:37 | Hospitalist Progress Note ---
Date of Service April 07, 2018 Assessment & Plan (1) Osteomyelitis of ankle or foot, acute: 52 y/o F Hx Gout, PTSD, chronic lower back pain, hypothyoridism, admitted on April 03, 2018 for left heel osteomyelitis. Had surgery on her L calcaneus and Achilles tendon in 12/2017 following an apparent stress fracture and Achilles tear. She had a non-healing surgical wound at the posterior aspect of her L foot since that time. Prior to admission , she had increasing pain and swelling in her L posterior ankle. MRI left ankle was done on 04/02 which showed possible calcaneal osteomyelitis. Bone biopsy on 04/04 grew MSSA and Group B Strep. - Plan for ceftriaxone 2g IV daily x 6 weeks - Follow up with ID and podiatry as outpatient - Arranging wound vac and durable medical devices (2) Gout: No inpatient concerns for flare. - Continued allopurinol (3) PTSD (post-traumatic stress disorder): No inpatient needs. - Continued clonazepam, Abilify, Mirtazipine (4) Hypothyroidism: No signs of hypo-/hyperthyroidism. - Continued home Synthroid Subjective 52yo F w/ hx of left ankle surgery with post-operative infection. No major concerns today, but would like to leave the hospital. Reports no fevers/chills, chest pain, shortness of breath, abdominal pain, nausea, or vomiting. Physical Exam 2 Vital Signs (Past 24 Hours): Last Vital Signs Temp 36.7 C 04/07/18 15:21 Pulse 79 04/07/18 15:21 Resp 18 04/07/18 15:21 BP 149/85 H 04/07/18 15:21 Pulse Ox 96 04/07/18 15:21 Constitutional: WD/WN, vitals as above Eyes: PERRL, conjunctivae normal, anicteric sclerae ENMT: external ear and nose normal, oropharynx normal Mouth: + poor dentition Mallampati Class: II Neck: normal visual inspection Respiratory: normal respiratory effort, lungs clear to auscultation normal respiratory effort Auscultation: lungs clear to auscultation bilaterally Cardiovascular: RRR, no murmur, no edema Rate/Rhythm: regular rate and regular rhythm Gastrointestinal (Abdomen): normal bowel sounds, soft, nontender, no hepatosplenomegaly Musculoskeletal: no cyanosis or clubbing, extremities motor strength 5/5 Skin: no rashes, warm and dry Psychiatric: A+Ox3, euthymic affect _ (1) Osteomyelitis of ankle or foot, acute Laterality: left Qualified Code(s): M86.172 - Other acute osteomyelitis, left ankle and foot
[2018-04-07] MEDS ORDERED: cefTRIAXone SODIUM 2,000 MG in DEXTROSE 5% 50 ML IV ONE (17:00)
[2018-04-07] MEDS: ARIPiprazole 5 MG TAB PO SCH (20:35)
[2018-04-07] MEDS: MIRTAZAPINE TAB 15 MG TAB PO SCH (20:37)
[2018-04-08] MEDS: HYDROmorphone INJ 0.5 MG/0.5 ML SYR IV PRN ×5 (01:03→20:38)
[2018-04-08] MEDS: OXYCODONE HCL IR 5 MG TAB (IMMEDIATE RELEASE) PO PRN ×5 (03:28→23:10)
[2018-04-08] MEDS: LEVOTHYROXINE SODIUM 88 MCG TABLET PO SCH (06:32)
[2018-04-08] MEDS: NICOTINE 21 MG/24 HR TDSY TD SCH (06:32)
[2018-04-08 08:32] LABS: Hematocrit (blood only) 40.4 % (37-47); Hemoglobin 13.3 g/dL (12.0-16.0); Mean Corpuscular Hgb Conc 32.9 g/dL (32-36); Mean Corpuscular Volume 95.7 fL (80-100); Platelet Count 171 K/uL (130-400); RDW Coefficient of Variation 15.2 % (11.5-14.5); RDW Standard Deviation 53.1 fL (36.4-46.3); Red Blood Count 4.22 M/uL (4.2-5.4); White Blood Count 7.76 K/uL (4.8-10.8)
[2018-04-08] MEDS: CYCLOBENZAPRINE HCL 10 MG TAB PO SCH ×3 (08:41→20:33)
[2018-04-08] MEDS: PANTOprazole 40 MG TAB PO SCH ×2 (08:41→20:34)
[2018-04-08] MEDS: NAPROXEN 250 MG TAB PO SCH ×2 (08:41→20:34)
[2018-04-08] MEDS: ALLOPURINOL 300 MG TAB PO SCH ×2 (08:41→20:35)
[2018-04-08] MEDS: LISINOPRIL 10 MG TAB PO SCH (08:41)
[2018-04-08] MEDS: MAGNESIUM OXIDE 400 MG TAB PO SCH ×2 (08:41→20:33)
[2018-04-08] MEDS: FLUCONAZOLE 100 MG TAB PO SCH (08:41)
[2018-04-08 09:05] LABS: Albumin Level 3.7 gm/dl (3.4-5.0); BUN Creatinine Ratio 13.6 (10-20); Calcium 9.2 mg/dl (8.5-10.1); Creatinine Clr Calc Pharmacy 85.5 ml/min; Est GFR (African American) 95.4; Est GFR (Non-African American) 82.3; Potassium 3.9 mmol/L (3.5-5.1)
[2018-04-08 09:08] LABS: Albumin Globulin Ratio 0.8 (0.9-2); Bilirubin,Total 0.6 mg/dl (0.2-1); Globulin 4.4 gm/dl (2.5-4.0); Total Protein 8.1 gm/dl (6.4-8.2)
[2018-04-08] MEDS ORDERED: cefTRIAXone SODIUM 2,000 MG in DEXTROSE 5% 50 ML IV ONE (12:00)
[2018-04-08] MEDS: clonazePAM 0.5 MG TAB PO PRN (16:39)
--- NOTE | 2018-04-08 17:09 | Hospitalist Progress Note ---
Date of Service April 08, 2018 Assessment & Plan (1) Osteomyelitis of ankle or foot, acute: 52 y/o F Hx Gout, PTSD, chronic lower back pain, hypothyoridism, admitted on April 03, 2018 for left heel osteomyelitis. Had surgery on her L calcaneus and Achilles tendon in 12/2017 following an apparent stress fracture and Achilles tear. She had a non-healing surgical wound at the posterior aspect of her L foot since that time. Prior to admission , she had increasing pain and swelling in her L posterior ankle. MRI left ankle was done on 04/02 which showed possible calcaneal osteomyelitis. Bone biopsy on 04/04 grew MSSA and Group B Strep. - Plan for ceftriaxone 2g IV daily x 6 weeks - Follow up with ID and podiatry as outpatient - Arranging wound vac and durable medical devices (2) Gout: No inpatient concerns for flare. - Continued allopurinol (3) PTSD (post-traumatic stress disorder): No inpatient needs. - Continued clonazepam, Abilify, Mirtazipine (4) Hypothyroidism: No signs of hypo-/hyperthyroidism. - Continued home Synthroid (5) DVT prophylaxis: SCDs Subjective 52yo F w/ hx of left ankle surgery with post-operative infection. Left heel pain continues, but is improving. Reports no fevers/chills, chest pain , shortness of breath, abdominal pain, nausea, or vomiting. Physical Exam 2 Vital Signs (Past 24 Hours): Last Vital Signs Temp 36.7 C 04/08/18 15:18 Pulse 80 04/08/18 15:18 Resp 22 04/08/18 15:18 BP 168/90 H 04/08/18 15:18 Pulse Ox 96 04/08/18 15:18 Constitutional: WD/WN, vitals as above Eyes: PERRL, conjunctivae normal, anicteric sclerae ENMT: external ear and nose normal, oropharynx normal Mouth: + poor dentition Mallampati Class: II Neck: normal visual inspection Respiratory: normal respiratory effort, lungs clear to auscultation normal respiratory effort Auscultation: lungs clear to auscultation bilaterally Cardiovascular: RRR, no murmur, no edema Rate/Rhythm: regular rate and regular rhythm Gastrointestinal (Abdomen): normal bowel sounds, soft, nontender, no hepatosplenomegaly Musculoskeletal: no cyanosis or clubbing, extremities motor strength 5/5 Skin: no rashes, warm and dry Psychiatric: A+Ox3, euthymic affect _ (1) Osteomyelitis of ankle or foot, acute Laterality: left Qualified Code(s): M86.172 - Other acute osteomyelitis, left ankle and foot
[2018-04-08] MEDS: ARIPiprazole 5 MG TAB PO SCH (20:33)
[2018-04-08] MEDS: MIRTAZAPINE TAB 15 MG TAB PO SCH (20:35)
[2018-04-09] MEDS: HYDROmorphone INJ 0.5 MG/0.5 ML SYR IV PRN ×4 (02:26→19:47)
[2018-04-09] MEDS: LEVOTHYROXINE SODIUM 88 MCG TABLET PO SCH (06:33)
[2018-04-09] MEDS: NICOTINE 21 MG/24 HR TDSY TD SCH (06:33)
[2018-04-09] MEDS: OXYCODONE HCL IR 5 MG TAB (IMMEDIATE RELEASE) PO PRN ×4 (06:34→21:28)
[2018-04-09] MEDS: LISINOPRIL 10 MG TAB PO SCH (08:23)
[2018-04-09] MEDS: CYCLOBENZAPRINE HCL 10 MG TAB PO SCH ×3 (08:23→20:55)
[2018-04-09] MEDS: MAGNESIUM OXIDE 400 MG TAB PO SCH ×2 (08:23→20:55)
[2018-04-09] MEDS: ALLOPURINOL 300 MG TAB PO SCH ×2 (08:23→20:55)
[2018-04-09] MEDS: NAPROXEN 250 MG TAB PO SCH ×2 (08:24→20:55)
[2018-04-09] MEDS: PANTOprazole 40 MG TAB PO SCH ×2 (08:24→20:55)
[2018-04-09] MEDS: FLUCONAZOLE 100 MG TAB PO SCH (08:24)
--- NOTE | 2018-04-09 16:06 | Hospitalist Progress Note ---
Date of Service April 09, 2018 Assessment & Plan (1) Osteomyelitis of ankle or foot, acute: 52 y/o F Hx Gout, PTSD, chronic lower back pain, hypothyoridism, admitted on April 03, 2018 for left heel osteomyelitis. Had surgery on her L calcaneus and Achilles tendon in 12/2017 following an apparent stress fracture and Achilles tear. She had a non-healing surgical wound at the posterior aspect of her L foot since that time. Prior to admission , she had increasing pain and swelling in her L posterior ankle. MRI left ankle was done on 04/02 which showed possible calcaneal osteomyelitis. Bone biopsy on 04/04 grew MSSA and Group B Strep. - Plan for ceftriaxone 2g IV daily x 6 weeks - Follow up with ID and podiatry as outpatient - Arranging wound vac and durable medical devices (2) Gout: No inpatient concerns for flare. - Continued allopurinol (3) PTSD (post-traumatic stress disorder): No inpatient needs. - Continued clonazepam, Abilify, Mirtazipine (4) Hypothyroidism: No signs of hypo-/hyperthyroidism. - Continued home Synthroid (5) DVT prophylaxis: SCDs Subjective 52yo F w/ hx of left ankle surgery with post-operative infection. Left heel pain continues, but is improving. Otherwise, hoping to be home soon. Reports no fevers/chills, chest pain, shortness of breath, abdominal pain, nausea, or vomiting. Physical Exam 2 Vital Signs (Past 24 Hours): Last Vital Signs Temp 36.6 C 04/09/18 15:44 Pulse 79 04/09/18 15:44 Resp 18 04/09/18 15:44 BP 116/73 04/09/18 15:44 Pulse Ox 93 04/09/18 15:44 Constitutional: WD/WN, vitals as above Eyes: PERRL, conjunctivae normal, anicteric sclerae ENMT: external ear and nose normal, oropharynx normal Neck: normal visual inspection Respiratory: normal respiratory effort, lungs clear to auscultation normal respiratory effort Auscultation: lungs clear to auscultation bilaterally Cardiovascular: RRR, no murmur, no edema Rate/Rhythm: regular rate and regular rhythm Gastrointestinal (Abdomen): normal bowel sounds, soft, nontender, no hepatosplenomegaly Musculoskeletal: no cyanosis or clubbing, extremities motor strength 5/5 Skin: no rashes, warm and dry Psychiatric: A+Ox3, euthymic affect _ (1) Osteomyelitis of ankle or foot, acute Laterality: left Qualified Code(s): M86.172 - Other acute osteomyelitis, left ankle and foot
[2018-04-09] MEDS: cefTRIAXone SODIUM 2,000 MG in DEXTROSE 5% 50 ML IV SCH (16:29)
[2018-04-09] MEDS: ARIPiprazole 5 MG TAB PO SCH (20:55)
[2018-04-09] MEDS: MIRTAZAPINE TAB 15 MG TAB PO SCH (20:55)
[2018-04-10] MEDS: HYDROmorphone INJ 0.5 MG/0.5 ML SYR IV PRN ×2 (03:03→07:15)
[2018-04-10] MEDS: NICOTINE 21 MG/24 HR TDSY TD SCH (05:37)
[2018-04-10] MEDS: LEVOTHYROXINE SODIUM 88 MCG TABLET PO SCH (05:37)
[2018-04-10] MEDS: OXYCODONE HCL IR 5 MG TAB (IMMEDIATE RELEASE) PO PRN ×2 (05:42→10:05)
[2018-04-10] MEDS: ALLOPURINOL 300 MG TAB PO SCH (09:16)
[2018-04-10] MEDS: NAPROXEN 250 MG TAB PO SCH (09:16)
[2018-04-10] MEDS: MAGNESIUM OXIDE 400 MG TAB PO SCH (09:17)
[2018-04-10] MEDS: CYCLOBENZAPRINE HCL 10 MG TAB PO SCH (09:17)
[2018-04-10] MEDS: PANTOprazole 40 MG TAB PO SCH (09:17)
[2018-04-10] MEDS: LISINOPRIL 10 MG TAB PO SCH (09:18)
[2018-04-10] MEDS: cefTRIAXone SODIUM 2,000 MG in DEXTROSE 5% 50 ML IV SCH (10:26)
[2018-04-10] MEDS: ACETAMINOPHEN 325 MG TAB PO PRN (10:34)
--- NOTE | 2018-04-10 17:26 | Discharge Summary ---
Date of Service April 10, 2018 Admission HPI Per Admitting Provider 52 y/o F Hx Gout, PTSD, chronic lower back pain, hypothyoridism. The pt had surgery on her L calcaneus and achilles tendon 12/2017 following an apparent stress fracture and achilles tear. She has had a nonhealing surgical wound at the posterior aspect of her L foot since that time. At one point she was treated for MRSA. Recently she has had increasing pain and swelling in her L ankle. She had an appointment with her resident care supervisor prior to admission who ordered an MRI. This demonstrated likely calcaneal osteomyelitis. She was sent to the hospital for IV antibiotics therefore. She denies fevers or rigors and initial labs are unremarkable. PMH: 1) Gout 2) Hypothyroidsim 3) PTSD 4) Chronic lower back pain 5) GERD 6) Migraine headaches Surgical: 1) Lumbar fusion and hardware placement 2010 2) L Calcaneus surgery and achilles tendon repair 12/2017 Social: Smokes a pack daily, rarely drinks, disabled since back surgery 2010 Family: Mother due to lung CA Father with history of gout and multiple back surgeries Principal Diagnosis Osteomyelitis of her left heel Discharge Exam Constitutional WD/WN, vitals as above Eyes PERRL, conjunctivae normal, anicteric sclerae ENMT external ear and nose normal, oropharynx normal Neck normal visual inspection Respiratory normal respiratory effort, lungs clear to auscultation normal respiratory effort Auscultation: lungs clear to auscultation bilaterally Cardiovascular RRR, no murmur, no edema Rate/Rhythm: regular rate and regular rhythm Gastrointestinal (Abdomen) normal bowel sounds, soft, nontender, no hepatosplenomegaly Musculoskeletal no cyanosis or clubbing, extremities motor strength 5/5 Skin no rashes, warm and dry Psychiatric A+Ox3, euthymic affect Discharge Data Allergies Allergy/AdvReac Type Severity Reaction Status Date / Time triamcinolone [From Kenalog] Allergy Intermediate Unknown Verified 04/05/18 07: 31 Latex, Natural Rubber Allergy Mild Unknown Verified 04/05/18 07:30 Consultations 04/02/18 16:07 ED Decision to Admit Stat 04/02/18 20:40 Consult Podiatry Routine 04/03/18 14:46 Consult Infectious Diseases Routine 04/05/18 11:22 Consult Case Management - Discharge Planning Routine Procedures Performed Operation Date: 04/04/18 07:35 Actual Procedures p Left Calcaneal Bone Biopsy(Left) - Frankie Rodriguez Ordered Studies 04/02/18 13:37 MR ankle LT wo/w con Stat 04/04/18 [place] fluoroscopy <1hr Routine Hospital Course (1) Osteomyelitis of ankle or foot, acute: 52 y/o F Hx Gout, PTSD, chronic lower back pain, hypothyoridism, admitted on April 03, 2018 for left heel osteomyelitis. Had surgery on her L calcaneus and Achilles tendon in 12/2017 following an apparent stress fracture and Achilles tear. She had a non-healing surgical wound at the posterior aspect of her L foot since that time. Prior to admission , she had increasing pain and swelling in her L posterior ankle. MRI left ankle was done on 04/02 which showed possible calcaneal osteomyelitis. Bone biopsy on 04/04 grew MSSA and Group B Strep. - Plan for ceftriaxone 2g IV daily x 6 weeks - Follow up with ID and podiatry as outpatient - Arranged wound vac and durable medical devices (2) Gout: No inpatient concerns for flare. - Continued allopurinol (3) PTSD (post-traumatic stress disorder): No inpatient needs. - Continued clonazepam, Abilify, Mirtazipine (4) Hypothyroidism: No signs of hypo-/hyperthyroidism. - Continued home Synthroid (5) DVT prophylaxis: SCDs Total Time Total Time Spent Total Time Spent (In Minutes): 120 Total Time Includes: Examination of the Patient, Discharge Planning and Medication Reconciliation Discharge Plan Discharge Items Patient Disposition: Home - Home Health Services Reason For Visit: OSTEOMYELITIS Discharge Diagnosis: Bone infection in the left foot Condition: Good Discharge Goals: Decrease discomfort, Diagnostic testing and Improve disease control Activity: As commented below Activity Comment: No weight-bearing on your left foot Bathing: Keep incision dry Weightbearing: Left non-weightbearing Weightbearing Comment: Not until cleared by Dr. Rodriguez. Non-emergency contact: Primary Care Provider and Surgeon Call non-emergency contact if: your symptoms worsen, your pain is unusual for you and your temperature is above 100.5 Follow-up/Referrals: Jud Harrell DO [Physician] - (Please see Dr. Harrell in 2 weeks to help manage your IV antibiotics.) Cruz Cooper DO [Primary Care Provider] - 04/15/18 12:45 pm (Please, follow up with Dr. Cooper on SaturdayApril 15 at 12:45 pm. *If you need to change this appointment, call the office at [phone].) Frankie Rodriguez [Physician] - 04/14/18 3:30 pm (Please, follow up with Dr. Rodriguez in the [place] Office on SaturdayApril 14 at 3:30 pm. *This office is located at [address] [place] [address] in [place]. If you need to change this appointment, call the office at [phone].) Diet: Regular Addtl Provider Instructions: Ms. Motta, You were admitted to the hospital for a infection in your bone in the left heel. Dr. Rodriguez took a sample, and we have the bacteria that are causing the infection. You will need to follow up with Dr. Rodriguez and Dr. Harrell (the infectious disease doctor) to follow up with the healing process and the infection. Please work with the home nursing agency to help with getting your needed antibiotics. Please follow closely with Dr. Rodriguez to ensure the infection is improving. Please come back to the hospital if you have further fevers, chills, increasing left foot pain, or other concerning symptoms. Prescriptions: New oxycodone-acetaminophen [Percocet] 5-325 mg tablet 1 tab PO Q6H PRN (Reason: pain) Qty: 20 RF: 0 Continue cyclobenzaprine 10 mg tablet 1 tab PO TID RF: 0 almotriptan malate 12.5 mg tablet 1 tab PO DAILY PRN (Reason: Migraine Headache) RF: 0 clonazepam 0.5 mg Tablet 0.5 mg PO DAILY PRN (Reason: Anxiety) RF: 0 levothyroxine 88 mcg tablet 1 tab PO QAM RF: 0 pantoprazole 40 mg tablet,delayed release (DR/EC) 1 tab PO BID RF: 0 mirtazapine 30 mg tablet 1 tab PO HS RF: 0 allopurinol 300 mg tablet 1 tab PO BID RF: 0 aripiprazole 5 mg tablet 1 tab PO HS RF: 0 Discontinued oxycodone-acetaminophen [Percocet] 10-325 mg Tablet 1 tab PO Q4H PRN (Reason: Pain) RF: 0 Stand-Alone Forms: [facility], [facility] Discharge Orders: Discharge Order (Routine); Ordered 04/08/18 Ordered By: Jw Soriano Admission Data Admit Date/Time: 04/02/18 19:31 Attending Provider: Jw Soriano Admit Provider: Andrae Beltre Primary Care Provider: Cruz Cooper Other Providers: [place] ; Frankie Rodriguez ; Keven Valadez ; Jw Soriano Service: Surgical Services Other Interventions: Discharge Summary Assessment (RN) Last Done: 04/10/18 09:42 DC Date/Time DO NOT enter until pt leaves facility: 04/10/18 12:23
== END 2018-04-10 12:23 | disposition home health service (06) | DRG 857 ==
LOC: ED 13:18 → 3E 19:31 → SUATTDRO 19:31 → 3E 21:03